=== PATIENT | female | born 1960 | race Caucasian/White ===

== ENCOUNTER 2019-02-20 17:48 | Inpatient (IN) | payer OTHER ==
[~2019-02-20] VITALS: Ht 157.5 cm; Wt 80.4 kg
[~2019-02-20 17:48] MED LIST: HYDR-3601 PO; LEVO150T87 PO; MYCO180T2 PO; PANT40TA3 PO; PRED5TAB PO; TACR5CAP PO; TRAM50TA2 PO
[2019-02-20 18:30] VITALS: BP 101/57; PULSE 78; RESP 17
[2019-02-20] MEDS ORDERED: CLON0.3T PO (19:58)
[2019-02-20] MEDS ORDERED: CLON0.2T5 PO (20:00)
[2019-02-20] MEDS ORDERED: ATOR10TA65 PO (20:02)
[2019-02-20 20:11] VITALS: BP 105/62; PULSE 74; RESP 18
[2019-02-20] MEDS ORDERED: ONDANSETRON 4 MG INJ IV PRN (21:00)
[2019-02-20] MEDS ORDERED: HYDROCODONE/APAP (5/325) TAB PO PRN ×2 (21:00)
[2019-02-20] MEDS ORDERED: traMADol 50 MG TAB PO PRN (21:00)
[2019-02-20] MEDS ORDERED: CEFTRIAXONE 1 GM/50 ML (PMX) 50 ML IVPB SCH (21:00)
[2019-02-20] MEDS ORDERED: NACL 0.9% 3 ML SYG IV SCH (21:00)
[2019-02-20] MEDS: SOD CHLORIDE 0.9% 1,000 ML IV SCH (22:02)
[2019-02-20] MEDS: MYCOPHENOLATE (SR) 180 MG TAB PO SCH (22:06)
[2019-02-20 22:34] VITALS: Ht 157.5 cm; Wt 80.4 kg
[2019-02-21] MEDS ORDERED: ZOLPIDEM 5 MG TAB PO ONE
[2019-02-21] MEDS: ACETAMINOPHEN 325 MG TAB PO PRN ×2 (01:55→23:36)
[2019-02-21 02:21] VITALS: BP 141/69; PULSE 80; RESP 18
[2019-02-21] MEDS: LEVOTHYROXINE 150 MCG TAB PO SCH (06:07)
[2019-02-21] MEDS: PANTOPRAZOLE (EC) 40 MG TAB PO SCH (06:07)
--- NOTE | 2019-02-21 06:40 | HP ---
Date/Time of Note Date/Time of Note DATE: 02/21/19 TIME: 06:36 Assessment/Plan VTE Prophylaxis Pharmacological prophylaxis: other Lines/Catheters IV Catheter Type (from [facility]): [place] Urinary Cath still in place: No Assessment/Plan Assessment/Plan 1. UTI with probable pyelonephritis -IV antibiotic -IV fluid -Follow-up culture results 2. Gram-negative bacilli bacteremia -Nurse just got a call from [facility] that patient blood culture was positive -IV antibiotic -Repeat blood culture 3. Status post kidney transplant -Continue immunotherapy -Check Prograf level in a.m. 4. History of lupus: See #3 5. Hypothyroidism, status post thyroidectomy -Continue Synthroid 6. Hypertension: Continue home med Result Diagram: 02/21/19 0551 02/21/19 0551 Results 24hrs Laboratory Tests Test 02/21/19 01:50 02/21/19 05:51 Urine Color STRAW Urine Clarity CLEAR Urine pH 7.0 Urine Specific [place] 1.004 Urine Ketones NEGATIVE Urine Nitrite NEGATIVE Urine Bilirubin NEGATIVE Urine Urobilinogen NEGATIVE Urine Leukocyte Esterase 2+ H Urine Microscopic RBC 0 Urine Microscopic WBC 63 H Urine Bacteria FEW A Urine Hemoglobin 1+ H Urine Glucose NEGATIVE Urine Total Protein NEGATIVE White Blood Count 12.5 #H Red Blood Count 3.69 L Hemoglobin 11.3 L Hematocrit 34.8 L Mean Corpuscular Volume 94.3 Mean Corpuscular Hemoglobin 30.6 Mean Corpuscular Hemoglobin Concent 32.5 Red Cell Distribution Width 13.0 Platelet Count 152 Mean Platelet Volume 9.3 # Immature Granulocytes % 0.600 H Neutrophils % 73.7 Lymphocytes % 16.4 Monocytes % 7.4 Eosinophils % 1.6 Basophils % 0.3 Nucleated Red Blood Cells % 0.0 Immature Granulocytes # 0.070 H Neutrophils # 9.2 H Lymphocytes # 2.1 Monocytes # 0.9 Eosinophils # 0.2 Basophils # 0.0 Nucleated Red Blood Cells # 0.0 Sodium Level 142 Potassium Level 5.0 Chloride Level 111 H Carbon Dioxide Level 27 Anion Gap 4 L Blood Urea Nitrogen 17 Creatinine 0.90 Est Glomerular Filtrat Rate mL/min > 60 Glucose Level 113 Calcium Level 9.5 Phosphorus Level 3.7 Magnesium Level 1.6 L Total Bilirubin 0.5 Direct Bilirubin 0.00 Indirect Bilirubin 0.5 Aspartate Amino Transf (AST/SGOT) 18 Alanine Aminotransferase (ALT/SGPT) 24 Alkaline Phosphatase 98 Total Protein 6.1 Albumin 3.3 Globulin 2.80 Albumin/Globulin Ratio 1.17 HPI/ROS Admit Date/Time Admit Date/Time February 20, 2019 at 18:44 Hx of Present Illness This is a 58-year-old female with a history of lupus, kidney failure status post cadaveric renal transplant, hypothyroidism status post thyroidectomy, hypertension. Patient initially presented to [facility] complaining of dysuria and urinary frequency. She was diagnosed with UTI with questionable pyelonephritis and was transferred to [facility] for insurance reason. We just got a call from home outside hospital saying that her blood culture comes back gram-negative bacilli. PMH/Family/Social Past Medical History Past Medical History Medical History: other (See HPI) Past Surgical History Past Surgical Hx: other (See HPI) Family History Significant Family History: no pertinent family hx Social History Alcohol Use: none Smoking Status: Never smoker Drug Use: none Exam Constitutional: alert, oriented, well developed Head: normocephalic, atraumatic Eyes: EOMI, PERRL Respiratory: clear to auscultation, normal air movement Cardiovascular: regular rate and rhythm, nl pulses Gastrointestinal: soft, non-tender Extremities: normal pulses Medications Current Medications Sodium Chloride 1,000 ml @ 75 mls/hr [id number] IV Last administered on 02/20/19at 22:02; Admin Dose 75 MLS/HR; Start 02/20/19 at 20:43 IV Flush (NS 3 ml) 3 ml PER PROTOCOL IV ; Start 02/20/19 at 21:00 Ondansetron HCl (Zofran Inj) 4 mg Q6H PRN IV NAUSEA/VOMITING; Start 02/20/19 at 21:00 Acetaminophen (Tylenol Tab) 650 mg Q6H PRN PO .PAIN 1-3 OR TEMP Last administered on 02/21/19at 01:55; Admin Dose 650 MG; Start 02/20/19 at 21:00 Acetaminophen/ Hydrocodone Bitart ([place] (5/325)) 1 tab Q6H PRN PO .MOD PAIN 4- 6; Start 02/20/19 at 21:00 Acetaminophen/ Hydrocodone Bitart ([place] (5/325)) 2 tab Q6H PRN PO .SEVERE PAIN 7-10; Start 02/20/19 at 21:00 Atorvastatin Calcium (Lipitor) 10 mg DAILY PO ; Start 02/21/19 at 09:00 Levothyroxine Sodium (Synthroid) 150 mcg BEFORE BREAKFAST PO Last administered on 02/21/19at 06:07; Admin Dose 150 MCG; Start 02/21/19 at 07:00 Mycophenolate Sodium (Myfortic) 540 mg BID PO Last administered on 02/20/19at 22:06; Admin Dose 540 MG; Start 02/20/19 at 22:00 Pantoprazole (Protonix Tab) 40 mg DAILY@0600 PO Last administered on 02/21/19at 06:07; Admin Dose 40 MG; Start 02/21/19 at 06:00 Prednisone (Prednisone) 5 mg DAILY PO ; Start 02/21/19 at 09:00 Tramadol HCl (Ultram) 50 mg Q6 PRN PO PAIN; Start 02/20/19 at 21:00 Miscellaneous Information 7 mg BID PO ; Start 02/20/19 at 21:00; Status UNV Ceftriaxone Sodium 50 ml @ 100 mls/hr Q24H IVPB Last administered on 02/20/19at 22:02; Admin Dose 100 MLS/HR; Start 02/20/19 at 21:00 Miscellaneous Information (*Order Clarification Bulletin) MEDICATION REQUIRES CLARIFICATI... Q8H XX ; Start 02/20/19 at 21:00 Coded Allergies: amoxicillin (Verified Allergy, Unknown, 07/12/16) Past Surgical History Past Surgical Hx: other Family History Significant Family History: no pertinent family hx Social History Smoking Status: Never smoker Exam/Review of Systems Vital Signs Vitals Vital Signs Date Temp Pulse Resp B/P (MAP) Pulse Ox O2 O2 Flow FiO2 Time Delivery Rate 02/21/19 98.0 80 18 141/69 96 02:21 (93) 02/20/19 Room Air 20:11 02/20/19 2.0 18:30 Intake and Output 02/20/19 02/20/19 02/21/19 1515:00 23:00 07:00 IntakeIntake Total 50 ml 350 ml BalanceBalance 50 ml 350 ml ALDAIR SORIANO MD February 21, 2019 06:40
[2019-02-21 08:00] VITALS: BP 139/73; PULSE 79; RESP 17
[2019-02-21] MEDS ORDERED: hydrALAzine 20 MG INJ IV PRN (09:30)
[2019-02-21] MEDS: SOD CHLORIDE 0.9% 1,000 ML IV SCH (09:45)
[2019-02-21] MEDS: ATORVASTATIN 10 MG TAB PO SCH (09:45)
[2019-02-21] MEDS: predniSONE 5 MG TAB PO SCH (09:46)
[2019-02-21] MEDS: MYCOPHENOLATE (SR) 180 MG TAB PO SCH ×2 (09:46→21:06)
[2019-02-21] MEDS ORDERED: MAGNESIUM SULFATE 2 GM/50 ML 50 ML IVPB ONE (10:30)
[2019-02-21] MEDS: TACROLIMUS 1 MG CAP PO SCH ×2 (11:07→21:05)
--- NOTE | 2019-02-21 13:31 | PN ---
Date/Time of Note Date/Time of Note DATE: 02/21/19 TIME: 13:31 Objective Vitals Vital Signs Date Temp Pulse Resp B/P (MAP) Pulse Ox O2 O2 Flow FiO2 Time Delivery Rate 02/21/19 98.2 79 17 139/73 99 Nasal 2.0 08:00 (95) Cannula Intake and Output 02/20/19 02/20/19 02/21/19 1515:00 23:00 07:00 IntakeIntake Total 725 ml 350 ml BalanceBalance 725 ml 350 ml Results Result Diagram: 02/21/19 0551 02/21/19 0551 Medications Medications Current Medications Sodium Chloride 1,000 ml @ 75 mls/hr [id number] IV Last administered on 02/21/19at 09:45; Admin Dose 75 MLS/HR; Start 02/20/19 at 20:43 IV Flush (NS 3 ml) 3 ml PER PROTOCOL IV ; Start 02/20/19 at 21:00 Ondansetron HCl (Zofran Inj) 4 mg Q6H PRN IV NAUSEA/VOMITING; Start 02/20/19 at 21:00 Acetaminophen (Tylenol Tab) 650 mg Q6H PRN PO .PAIN 1-3 OR TEMP Last administered on 02/21/19at 01:55; Admin Dose 650 MG; Start 02/20/19 at 21:00 Acetaminophen/ Hydrocodone Bitart ([place] (5/325)) 1 tab Q6H PRN PO .MOD PAIN 4- 6; Start 02/20/19 at 21:00 Acetaminophen/ Hydrocodone Bitart ([place] (5/325)) 2 tab Q6H PRN PO .SEVERE PAIN 7-10; Start 02/20/19 at 21:00 Atorvastatin Calcium (Lipitor) 10 mg DAILY PO Last administered on 02/21/19at 09:45; Admin Dose 10 MG; Start 02/21/19 at 09:00 Levothyroxine Sodium (Synthroid) 150 mcg BEFORE BREAKFAST PO Last administered on 02/21/19at 06:07; Admin Dose 150 MCG; Start 02/21/19 at 07:00 Mycophenolate Sodium (Myfortic) 540 mg BID PO Last administered on 02/21/19at 09:46; Admin Dose 540 MG; Start 02/20/19 at 22:00 Pantoprazole (Protonix Tab) 40 mg DAILY@0600 PO Last administered on 02/21/19at 06:07; Admin Dose 40 MG; Start 02/21/19 at 06:00 Prednisone (Prednisone) 5 mg DAILY PO Last administered on 02/21/19at 09:46; Admin Dose 5 MG; Start 02/21/19 at 09:00 Tramadol HCl (Ultram) 50 mg Q6 PRN PO PAIN; Start 02/20/19 at 21:00 Tacrolimus (Prograf) 7 mg BID PO Last administered on 02/21/19at 11:07; Admin Dose 7 MG; Start 02/21/19 at 11:00 Ceftriaxone Sodium 50 ml @ 100 mls/hr Q24H IVPB Last administered on 02/20/19at 22:02; Admin Dose 100 MLS/HR; Start 02/20/19 at 21:00 Miscellaneous Information (*Order Clarification Bulletin) MEDICATION REQUIRES CLARIFICATI... Q8H XX ; Start 02/20/19 at 21:00 Hydralazine HCl (Apresoline) 10 mg Q4H PRN IV sbp >160; Start 02/21/19 at 09:30 VTE Prophylaxis Risk score (from Ns)>0 risk: 4 SCD applied (from [facility]): Yes Lines/Catheters IV Catheter Type: Flores in Place: No Assessment/Plan Hospital Course Subjective Patient's left abdominal pain is significantly better Objective Physical exam General: Patient is laying in bed and answers questions appropriately Mentation: Patient is alert and oriented 4, Head: Normocephalic atraumatic Eyes: EOMI, pupils reactive to light Neck: Supple, nontender, midline Respiratory: Clear to auscultation bilaterally Cardiovascular: regular rate, no obvious murmurs Gastrointestinal: Mild left lower quadrant tenderness to palpation, bowel sounds heard. Neurological: Moves all extremities spontaneously Skin: No new skin lesions Assessment and plan Urinary tract infection -CT not showing any signs of pyelonephritis however with lower abdominal pain at surgical site may be early pyelonephritis -Continue IV antibiotic -Patient due to immune compromise status will need to wait until culture results before discharge on appropriate oral antibiotic -Blood cultures also pending Gram-negative bacteremia -Nurse got a call from [facility] the patient's blood culture was positive -Repeating blood cultures -Continue IV antibiotic History of kidney transplant -CT negative for acute issues -Monitor closely History of lupus -Continue home meds Hypothyroidism -Continue home med Hypertension -Continue home meds Patchy density and liver -Liver biopsy done in 2016 -Findings similar to examination 2016, follow-up outpatient with her primary care provider Tiny nonobstructing renal calculi -Continue IV fluid Disposition -Continue IV antibiotic, consult infectious disease, await culture results before discharge ALIZA CARRENO February 21, 2019 13:31
[2019-02-21 14:00] VITALS: BP 136/69; PULSE 80; RESP 17
--- NOTE | 2019-02-21 18:49 | CONS ---
DATE OF ADMISSION: 02/20/2019 DATE OF CONSULTATION: 02/21/2019 TYPE OF CONSULTATION: Infectious disease. REQUESTING PHYSICIAN: Aliza Evans MD Thank you, Dr. Evans, for this consultation. HISTORY OF PRESENT ILLNESS: This is an obese, well-developed, 58-year-old woman who speaks and understands [place] well. The patient with a history of lupus, chronic kidney disease status pos t cadaveric renal transplant in 2011, on immunosuppressive therapy, hypothyroidism, status post thyro idectomy, hypertension. She was admitted to [facility] with sudden onset of fevers, chills and left lower quadrant abdominal pain as well as dysuria per report for blood culture and urine culture grew gram-negative rods. She was subsequently transferred to [facility] on IV cefepime. VITAL SIGNS: Temperature 98.1, pulse 80, respirations 17, blood pressure 136/69, saturation 100 on n kyara cannula. LABORATORY DATA: WBC 12.5, H and H 11.3 and 34.8, platelets 152, no shift, no bands. BUN 17, creati nine 0.90. Normal bilirubin and LFT. MICROBIOLOGY: Urinalysis is still positive for leukocyte esterase and white blood cell count, few ba cteria, negative for nitrite. DIAGNOSTICS: CT of the abdomen and pelvis without contrast revealed heterogenous patchy density in r ight lobe of the liver. Findings are similar to prior examination in 2016. Severe end-stage atrophy of the bilateral [place] kidneys with tiny nonobstructive renal calculi. No evidence of obstructive uropathy. Left pelvic transplant kidney without evidence of obstructive uropathy or urolithiasis, no evidence of pyelonephritis, mild colonic diverticulosis without evidence of diverticulitis. REVIEW OF SYSTEMS: The patient still has mild left lower quadrant abdominal pain. Dysuria is improv ing. She denies nausea, vomiting, diarrhea. She has some mild headache. ALLERGIES: AMOXICILLIN THAT CAUSES SWELLING OF THE FACE, RASH AND SWELLING ON THE TONGUE. MEDICATIONS: The patient is on: 1. Cefepime 1 gram q.12 hours. 2. Prograf 7 mg twice a day. 3. Hydralazine 10 mg p.r.n. q.4 hours. 4. Lipitor 10 mg daily. 5. Prednisone 5 mg daily. 6. Synthroid 150 mcg before breakfast. 7. Protonix 40 mg daily. 8. Myfortic 540 mg twice a day. SOCIAL HISTORY: The patient lives at home with her family. Denies smoking, alcohol or illicits. De nies recent travel, sick contacts. PHYSICAL EXAMINATION: GENERAL: This is an obese, well-developed, very pleasant, middle-aged woman who is alert, i n no distress. HEENT: Head is atraumatic, normocephalic. Sclerae are anicteric. Buccal mucosa is pale. Oropharyn x is clear. No oral lesions. NECK: Supple. No palpable cervical nodes. CHEST: Rise symmetrical. Breath sounds are clear bilaterally. HEART: S1, S2. ABDOMEN: Soft. Bowel sounds are present. The patient has some mild tenderness on palpation of left lower quadrant. No evidence of distended bladder. EXTREMITIES: Without cyanosis. DIAGNOSTIC IMPRESSION: A 58-year-old woman admitted to [facility] with sepsis secondary to uri nary tract infection per report growing gram-negative rods in her blood. She is clinically and sympt om pathologically improving. Cultures repeated here are pending. We will continue her on current an tibiotics. We will try to obtain final cultures from [facility]. Further rec ommendations per patient's clinical course. I discussed with Dr. Geronimo, covering for Dr. Rodriguez. Dictated By: MANSOOR MOSQUERA FORESTRY CONSULTANT for KAYLEIGH MILLAN/NTS Conf#: [id number] DID#: [id number] CC: ALIZA EVANS MD;*EndCC*
[2019-02-21 20:00] VITALS: BP 171/86; PULSE 91; RESP 18
[2019-02-21] MEDS: CEFEPIME 1GM/50 ML (PMX) 50 ML IVPB SCH (21:12)
[2019-02-22 01:00] VITALS: BP 133/68; PULSE 80; RESP 18
[2019-02-22] MEDS: PANTOPRAZOLE (EC) 40 MG TAB PO SCH (06:12)
[2019-02-22] MEDS: LEVOTHYROXINE 150 MCG TAB PO SCH (06:12)
[2019-02-22] MEDS: SOD CHLORIDE 0.9% 1,000 ML IV SCH ×3 (06:12→20:45)
[2019-02-22 08:10] VITALS: BP 138/67; PULSE 68; RESP 18
[2019-02-22] MEDS: TACROLIMUS 1 MG CAP PO SCH ×2 (10:04→21:32)
[2019-02-22] MEDS: CEFEPIME 1GM/50 ML (PMX) 50 ML IVPB SCH ×2 (10:04→20:45)
[2019-02-22] MEDS: MYCOPHENOLATE (SR) 180 MG TAB PO SCH ×2 (10:04→21:31)
[2019-02-22] MEDS: predniSONE 5 MG TAB PO SCH (10:05)
[2019-02-22] MEDS: ATORVASTATIN 10 MG TAB PO SCH (10:05)
[2019-02-22] MEDS ORDERED: MAGNESIUM SULFATE 2 GM/50 ML 50 ML IVPB ONE (10:30)
--- NOTE | 2019-02-22 12:13 | PN ---
Date/Time of Note Date/Time of Note DATE: 02/22/19 TIME: 12:12 Objective Vitals Vital Signs Date Temp Pulse Resp B/P (MAP) Pulse Ox O2 O2 Flow FiO2 Time Delivery Rate 02/22/19 98.2 68 18 138/67 98 08:10 (90) 02/22/19 Nasal 2.0 01:00 Cannula Intake and Output 02/21/19 02/21/19 02/22/19 1515:00 23:00 07:00 IntakeIntake Total 1015 ml 790 ml 1000 ml BalanceBalance 1015 ml 790 ml 1000 ml Results Result Diagram: 02/22/1963202/22/19632 Medications Medications Current Medications Sodium Chloride 1,000 ml @ 75 mls/hr [id number] IV Last administered on 02/22/19at 06:12; Admin Dose 75 MLS/HR; Start 02/20/19 at 20:43 IV Flush (NS 3 ml) 3 ml PER PROTOCOL IV ; Start 02/20/19 at 21:00 Ondansetron HCl (Zofran Inj) 4 mg Q6H PRN IV NAUSEA/VOMITING; Start 02/20/19 at 21:00 Acetaminophen (Tylenol Tab) 650 mg Q6H PRN PO .PAIN 1-3 OR TEMP Last administered on 02/21/19at 23:36; Admin Dose 650 MG; Start 02/20/19 at 21:00 Acetaminophen/ Hydrocodone Bitart ([place] (5/325)) 1 tab Q6H PRN PO .MOD PAIN 4-6; Start 02/20/19 at 21:00 Acetaminophen/ Hydrocodone Bitart ([place] (5/325)) 2 tab Q6H PRN PO .SEVERE PAIN 7-10; Start 02/20/19 at 21:00 Atorvastatin Calcium (Lipitor) 10 mg DAILY PO Last administered on 02/22/19at 10:05; Admin Dose 10 MG; Start 02/21/19 at 09:00 Levothyroxine Sodium (Synthroid) 150 mcg BEFORE BREAKFAST PO Last administered on 02/22/19at 06:12; Admin Dose 150 MCG; Start 02/21/19 at 07:00 Mycophenolate Sodium (Myfortic) 540 mg BID PO Last administered on 02/22/19at 10:04; Admin Dose 540 MG; Start 02/20/19 at 22:00 Pantoprazole (Protonix Tab) 40 mg DAILY@0600 PO Last administered on 02/22/19at 06:12; Admin Dose 40 MG; Start 02/21/19 at 06:00 Prednisone (Prednisone) 5 mg DAILY PO Last administered on 02/22/19at 10:05; Admin Dose 5 MG; Start 02/21/19 at 09:00 Tramadol HCl (Ultram) 50 mg Q6 PRN PO PAIN; Start 02/20/19 at 21:00 Tacrolimus (Prograf) 7 mg BID PO Last administered on 02/22/19at 10:04; Admin Dose 7 MG; Start 02/21/19 at 11:00 Miscellaneous Information (*Order Clarification Bulletin) MEDICATION REQUIRES CLARIFICATI... Q8H XX ; Start 02/20/19 at 21:00 Hydralazine HCl (Apresoline) 10 mg Q4H PRN IV sbp >160; Start 02/21/19 at 09:30 Cefepime HCl 50 ml @ 100 mls/hr Q12 IVPB Last administered on 02/22/19at 10:04; Admin Dose 100 MLS/HR; Start 02/21/19 at 21:00 Clonidine (Catapres) 0.1 mg Q6H PRN PO sbp >160; Start 02/22/19 at 10:00 Magnesium Sulfate 50 ml @ 25 mls/hr ONCE ONCE IVPB Last administered on 02/22/19at 10:56; Admin Dose 25 MLS/HR; Start 02/22/19 at 10:30; Stop 02/22/19 at 12:29 VTE Prophylaxis Risk score (from Nsg)>0 risk: 4 SCD applied (from Nsg): Yes Lines/Catheters IV Catheter Type: Flores in Place: No Assessment/Plan Hospital Course Subjective Patient's left abdominal pain cont to improve Objective Physical exam General: Patient is laying in bed and answers questions appropriately Mentation: Patient is alert and oriented 4, Head: Normocephalic atraumatic Eyes: EOMI, pupils reactive to light Neck: Supple, nontender, midline Respiratory: Clear to auscultation bilaterally Cardiovascular: regular rate, no obvious murmurs Gastrointestinal: Mild left lower quadrant tenderness to palpation, bowel sounds heard. Neurological: Moves all extremities spontaneously Skin: No new skin lesions Assessment and plan Urinary tract infection -CT not showing any signs of pyelonephritis however with lower abdominal pain at surgical site may be early pyelonephritis -Continue IV antibiotic -Patient due to immune compromise status will need to wait until culture results before discharge on appropriate oral antibiotic -Blood cultures also pending Gram-negative bacteremia -Nurse got a call from [facility] the patient's blood culture was positive -Repeating blood cultures -Continue IV antibiotic History of kidney transplant -CT negative for acute issues -Monitor closely History of lupus -Continue home meds Hypothyroidism -Continue home med Hypertension -Continue home meds Patchy density and liver -Liver biopsy done in 2016 -Findings similar to examination 2016, follow-up outpatient with her primary care provider Tiny nonobstructing renal calculi -Continue IV fluid Disposition -Continue IV antibiotic, consult infectious disease, await culture results before discharge ALIZA CARRENO February 22, 2019 12:13
[2019-02-22] MEDS: ACETAMINOPHEN 325 MG TAB PO PRN (14:18)
[2019-02-22 14:29] VITALS: BP 179/90; PULSE 76; RESP 18
--- NOTE | 2019-02-22 15:07 | CONS ---
Assessment/Plan Assessment/Plan Hospital Course (Demo Recall) Patient is alert feels better still with intermittent left sided abdominal pain, no dysuria no hematuria, no fevers WBC 9.4 platelets 172, no shift no bands BUN 16 creatinine 0.70 Microbiology: Blood and urine cultures are negative Allergies: Amoxicillin Antimicrobials: Cefepime PHYSICAL EXAMINATION: GENERAL: This is an obese, well-developed, very pleasant, middle-aged woman who is alert, in no distress. HEENT: Head is atraumatic, normocephalic. Sclerae are anicteric. Buccal mucosa is pale. Oropharynx is clear. No oral lesions. NECK: Supple. No palpable cervical nodes. CHEST: Rise symmetrical. Breath sounds are clear bilaterally. HEART: S1, S2. ABDOMEN: Soft. Bowel sounds are present. The patient has some mild tenderness on palpation of left lower quadrant. No evidence of distended bladder. EXTREMITIES: Without cyanosis. Assessment: 1. Acute pyelonephritis 2. Gram-negative ashok bacteremia 3. History of kidney transplant, on immunosuppressive therapy 4. Lupus Plan: A 58-year-old woman was transferred from [facility] secondary to sepsis/ urinary tract infection per report growing gram-negative rods in her blood. She is improving. Continue antibiotics and await for blood cultures from [facility] Consultation Date/Type/Reason Admit Date/Time February 20, 2019 at 18:44 Initial Consult Date Type of Consult id Date/Time of Note DATE: 02/22/19 TIME: 15:07 Exam/Review of Systems Exam Vitals Vital Signs Date Temp Pulse Resp B/P (MAP) Pulse Ox O2 O2 Flow FiO2 Time Delivery Rate 02/22/19 98.3 76 18 179/90 99 14:29 (119) 02/22/19 Nasal 2.0 01:00 Cannula Intake and Output 02/21/19 02/21/19 02/22/19 1414:59 22:59 06:59 IntakeIntake Total 1015 ml 790 ml 1000 ml BalanceBalance 1015 ml 790 ml 1000 ml Results Result Diagram: 02/22/19 0633 02/22/19 0633 Results 24hrs Laboratory Tests Test 02/22/19 06:33 White Blood Count 9.4 # Red Blood Count 3.98 L Hemoglobin 12.0 Hematocrit 37.1 Mean Corpuscular Volume 93.2 Mean Corpuscular Hemoglobin 30.2 Mean Corpuscular Hemoglobin Concent 32.3 Red Cell Distribution Width 12.8 Platelet Count 172 Mean Platelet Volume 9.6 Immature Granulocytes % 0.400 Neutrophils % 70.0 Lymphocytes % 18.7 Monocytes % 8.8 Eosinophils % 1.8 Basophils % 0.3 Nucleated Red Blood Cells % 0.0 Immature Granulocytes # 0.040 H Neutrophils # 6.6 Lymphocytes # 1.8 Monocytes # 0.8 Eosinophils # 0.2 Basophils # 0.0 Nucleated Red Blood Cells # 0.0 Sodium Level 143 Potassium Level 3.7 Chloride Level 113 H Carbon Dioxide Level 23 Anion Gap 7 Blood Urea Nitrogen 16 Creatinine 0.70 Est Glomerular Filtrat Rate mL/min > 60 Glucose Level 126 Calcium Level 10.0 Phosphorus Level 3.1 Magnesium Level 1.6 L Medications Medication Current Medications Sodium Chloride 1,000 ml @ 75 mls/hr [id number] IV Last administered on 02/22/19 06:12; Admin Dose 75 MLS/HR; Start 02/20/19 at 20:43 IV Flush (NS 3 ml) 3 ml PER PROTOCOL IV ; Start 02/20/19 at 21:00 Ondansetron HCl (Zofran Inj) 4 mg Q6H PRN IV NAUSEA/VOMITING; Start 02/20/19 at 21:00 Acetaminophen (Tylenol Tab) 650 mg Q6H PRN PO .PAIN 1-3 OR TEMP Last administered on 02/22/19at 14:18; Admin Dose 650 MG; Start 02/20/19 at 21:00 Acetaminophen/ Hydrocodone Bitart ([place] (5/325)) 1 tab Q6H PRN PO .MOD PAIN 4- 6; Start 02/20/19 at 21:00 Acetaminophen/ Hydrocodone Bitart ([place] (5/325)) 2 tab Q6H PRN PO .SEVERE PAIN 7-10; Start 02/20/19 at 21:00 Atorvastatin Calcium (Lipitor) 10 mg DAILY PO Last administered on 02/22/19at 10:05; Admin Dose 10 MG; Start 02/21/19 at 09:00 Levothyroxine Sodium (Synthroid) 150 mcg BEFORE BREAKFAST PO Last administered on 02/22/19at 06:12; Admin Dose 150 MCG; Start 02/21/19 at 07:00 Mycophenolate Sodium (Myfortic) 540 mg BID PO Last administered on 02/22/19 10:04; Admin Dose 540 MG; Start 02/20/19 at 22:00 Pantoprazole (Protonix Tab) 40 mg DAILY@0600 PO Last administered on 02/22/19 06:12; Admin Dose 40 MG; Start 02/21/19 at 06:00 Prednisone (Prednisone) 5 mg DAILY PO Last administered on 02/22/19 10:05; Admin Dose 5 MG; Start 02/21/19 at 09:00 Tramadol HCl (Ultram) 50 mg Q6 PRN PO PAIN; Start 02/20/19 at 21:00 Tacrolimus (Prograf) 7 mg BID PO Last administered on 02/22/19 10:04; Admin Dose 7 MG; Start 02/21/19 at 11:00 Miscellaneous Information (*Order Clarification Bulletin) MEDICATION REQUIRES CLARIFICATI... Q8H XX ; Start 02/20/19 at 21:00 Hydralazine HCl (Apresoline) 10 mg Q4H PRN IV sbp >160; Start 02/21/19 at 09:30 Cefepime HCl 50 ml @ 100 mls/hr Q12 IVPB Last administered on 02/22/19 10:04; Admin Dose 100 MLS/HR; Start 02/21/19 at 21:00 Clonidine (Catapres) 0.1 mg Q6H PRN PO sbp >160 Last administered on 02/22/19 14:18; Admin Dose 0.1 MG; Start 02/22/19 at 10:00 Clonidine (Catapres) 0.2 mg QHS PO ; Start 02/22/19 at 21:00 Clonidine (Catapres) 0.3 mg QAM PO ; Start 02/23/19 at 09:00 MANSOOR MOSQUERA NP February 22, 2019 15:07
[2019-02-22 15:30] VITALS: BP 153/84; PULSE 77
[2019-02-22 20:00] VITALS: BP 169/86; PULSE 84; RESP 18
[2019-02-23] VITALS (7 sets, daily range): BP systolic 113–178; BP diastolic 67–94; PULSE 67–98; RESP 18
[2019-02-23] MEDS: ACETAMINOPHEN 325 MG TAB PO PRN ×2 (02:03→10:17)
[2019-02-23] MEDS: PANTOPRAZOLE (EC) 40 MG TAB PO SCH (06:22)
[2019-02-23] MEDS: LEVOTHYROXINE 150 MCG TAB PO SCH (06:22)
[2019-02-23] MEDS: predniSONE 5 MG TAB PO SCH (10:08)
[2019-02-23] MEDS: CEFEPIME 1GM/50 ML (PMX) 50 ML IVPB SCH ×2 (10:08→20:21)
[2019-02-23] MEDS: MYCOPHENOLATE (SR) 180 MG TAB PO SCH ×2 (10:08→20:22)
[2019-02-23] MEDS: ATORVASTATIN 10 MG TAB PO SCH (10:09)
[2019-02-23] MEDS: TACROLIMUS 1 MG CAP PO SCH ×2 (11:26→20:22)
--- NOTE | 2019-02-23 13:04 | PN ---
Date/Time of Note Date/Time of Note DATE: 02/23/19 TIME: 13:01 Assessment/Plan VTE Prophylaxis Risk score (from Ns)>0 risk: 3 SCD applied (from Ns): Yes Pharmacological prophylaxis: NA/contraindicated Pharm contraindication: low risk/ambulating Lines/Catheters IV [facility]ter Type (from [facility]): Peripheral IV Urinary Cath still in place: No Assessment/Plan Hospital Course SUBJECTIVE: Denies any complaints. OBJECTIVE: Physical Exam General: Obese, 58 year-old female lying in bed in no apparent distress. HEENT: Normocephalic, atraumatic. Eyes: Anicteric sclerae, conjunctivae clear. ENT: Nasal septum midline, oral mucosa moist. Neck supple, no JVD noticed. Respiratory: Bilaterally clear breath sounds. No use of accessory muscles of respiration. No adventitious breath sounds. Cardiovascular: S1, S2 heard. Regular rate and rhythm. Abdomen: Soft, nontender, and nondistended. Bowel sounds positive in all 4 quadrants. Genitourinary: Deferred. Extremities: No cyanosis, no clubbing, no edema. Peripheral pulses palpable. Neurologic: Cranial nerves II through XII grossly intact. The patient is awake, alert, and oriented. Skin: Normal skin turgor. No skin rashes. Labs & Vitals per chart ASSESSMENT & PLAN 58-year-old female with comorbidities including lupus, hypothyroidism, hypertension, status post cadaveric renal transplant who was transferred from the facility for further management of sepsis because of insurance reasons. 1. Sepsis with underlying urinary tract infection. -Continue antimicrobials. -Await final cultures from transferring facility. 2. Gram-negative bacteremia (from transferring facility). -Continue antimicrobials as per ID. Await final cultures. 3. Status post transplant. -Continue immunotherapy. -Prograf level low. -Obtain nephrology consult. 4. Hypothyroidism. -Continue Synthroid. 5. Lupus. -No evidence of any flare. 6. Hypertension. -Continue antihypertensives. 7. Dyslipidemia. -Continue statins. 8. Fluids, electrolytes, and nutrition. -Renal diet. 9. DVT prophylaxis. -Bilateral SCDs. 10. Plan. -Continue antimicrobials as per ID. -Await final cultures from the transferring facility. The patient was seen in collaboration with Dr. Garcia. Result Diagram: 02/23/19 0532 02/23/19 0532 Results 24hrs Laboratory Tests Test 02/23/19 05:32 White Blood Count 9.6 Red Blood Count 4.03 L Hemoglobin 12.1 Hematocrit 36.8 L Mean Corpuscular Volume 91.3 Mean Corpuscular Hemoglobin 30.0 Mean Corpuscular Hemoglobin Concent 32.9 Red Cell Distribution Width 12.4 Platelet Count 201 Mean Platelet Volume 9.8 Immature Granulocytes % 0.500 H Neutrophils % 66.8 Lymphocytes % 23.4 Monocytes % 7.8 Eosinophils % 1.3 Basophils % 0.2 Nucleated Red Blood Cells % 0.0 Immature Granulocytes # 0.050 H Neutrophils # 6.4 Lymphocytes # 2.2 Monocytes # 0.8 Eosinophils # 0.1 Basophils # 0.0 Nucleated Red Blood Cells # 0.0 Sodium Level 142 Potassium Level 3.3 L Chloride Level 113 H Carbon Dioxide Level 22 Anion Gap 7 Blood Urea Nitrogen 15 Creatinine 0.62 Est Glomerular Filtrat Rate mL/min > 60 Glucose Level 119 Calcium Level 9.9 Phosphorus Level 2.9 Magnesium Level 1.3 L Exam/Review of Systems Exam Vitals Vital Signs Date Temp Pulse Resp B/P (MAP) Pulse Ox O2 O2 Flow FiO2 Time Delivery Rate 02/23/19 98.8 87 18 140/77 96 Room Air 08:00 (98) 02/22/19 2.0 01:00 Intake and Output 02/22/19 02/22/19 02/23/19 1515:00 23:00 07:00 IntakeIntake Total 880 ml 590 ml BalanceBalance 880 ml 590 ml Results Results 24hrs Laboratory Tests Test 02/23/19 05:32 White Blood Count 9.6 Red Blood Count 4.03 L Hemoglobin 12.1 Hematocrit 36.8 L Mean Corpuscular Volume 91.3 Mean Corpuscular Hemoglobin 30.0 Mean Corpuscular Hemoglobin Concent 32.9 Red Cell Distribution Width 12.4 Platelet Count 201 Mean Platelet Volume 9.8 Immature Granulocytes % 0.500 H Neutrophils % 66.8 Lymphocytes % 23.4 Monocytes % 7.8 Eosinophils % 1.3 Basophils % 0.2 Nucleated Red Blood Cells % 0.0 Immature Granulocytes # 0.050 H Neutrophils # 6.4 Lymphocytes # 2.2 Monocytes # 0.8 Eosinophils # 0.1 Basophils # 0.0 Nucleated Red Blood Cells # 0.0 Sodium Level 142 Potassium Level 3.3 L Chloride Level 113 H Carbon Dioxide Level 22 Anion Gap 7 Blood Urea Nitrogen 15 Creatinine 0.62 Est Glomerular Filtrat Rate mL/min > 60 Glucose Level 119 Calcium Level 9.9 Phosphorus Level 2.9 Magnesium Level 1.3 L Medications Medication Current Medications Sodium Chloride 1,000 ml @ 75 mls/hr [id number] IV Last administered on 02/22/19 20:45; Admin Dose 75 MLS/HR; Start 02/20/19 at 20:43 IV Flush (NS 3 ml) 3 ml PER PROTOCOL IV ; Start 02/20/19 at 21:00 Ondansetron HCl (Zofran Inj) 4 mg Q6H PRN IV NAUSEA/VOMITING; Start 02/20/19 at 21:00 Acetaminophen (Tylenol Tab) 650 mg Q6H PRN PO .PAIN 1-3 OR TEMP Last administered on 02/23/19 10:17; Admin Dose 650 MG; Start 02/20/19 at 21:00 Acetaminophen/ Hydrocodone Bitart ([place] (5/325)) 1 tab Q6H PRN PO .MOD PAIN 4- 6; Start 02/20/19 at 21:00 Acetaminophen/ Hydrocodone Bitart ([place] (5/325)) 2 tab Q6H PRN PO .SEVERE PAIN 7-10; Start 02/20/19 at 21:00 Atorvastatin Calcium (Lipitor) 10 mg DAILY PO Last administered on 02/23/19 10:09; Admin Dose 10 MG; Start 02/21/19 at 09:00 Levothyroxine Sodium (Synthroid) 150 mcg BEFORE BREAKFAST PO Last administered on 02/23/19 06:22; Admin Dose 150 MCG; Start 02/21/19 at 07:00 Mycophenolate Sodium (Myfortic) 540 mg BID PO Last administered on 02/23/19 10:08; Admin Dose 540 MG; Start 02/20/19 at 22:00 Pantoprazole (Protonix Tab) 40 mg DAILY@0600 PO Last administered on 02/23/19 06:22; Admin Dose 40 MG; Start 02/21/19 at 06:00 Prednisone (Prednisone) 5 mg DAILY PO Last administered on 02/23/19 10:08; Admin Dose 5 MG; Start 02/21/19 at 09:00 Tramadol HCl (Ultram) 50 mg Q6 PRN PO PAIN Last administered on 02/23/19 05:38; Admin Dose 50 MG; Start 02/20/19 at 21:00 Tacrolimus (Prograf) 7 mg BID PO Last administered on 02/23/19 11:26; Admin Dose 7 MG; Start 02/21/19 at 11:00 Miscellaneous Information (*Order Clarification Bulletin) MEDICATION REQUIRES CLARIFICATI... Q8H XX ; Start 02/20/19 at 21:00 Hydralazine HCl (Apresoline) 10 mg Q4H PRN IV sbp >160 Last administered on 02/23/19 02:08; Admin Dose 10 MG; Start 02/21/19 at 09:30 Cefepime HCl 50 ml @ 100 mls/hr Q12 IVPB Last administered on 02/23/19 10:08; Admin Dose 100 MLS/HR; Start 02/21/19 at 21:00 Clonidine (Catapres) 0.1 mg Q6H PRN PO sbp >160 Last administered on 02/22/19 14:18; Admin Dose 0.1 MG; Start 02/22/19 at 10:00 Clonidine (Catapres) 0.2 mg QHS PO Last administered on 02/22/19 21:30; Admin Dose 0.2 MG; Start 02/22/19 at 21:00 Clonidine (Catapres) 0.3 mg QAM PO Last administered on 02/23/19 10:09; Admin Dose 0.3 MG; Start 02/23/19 at 09:00 SEVERIANO DAVE NP February 23, 2019 13:04
[2019-02-23] MEDS ORDERED: POTASSIUM CHLORIDE (SR) 20 MEQ TAB PO STA (13:21)
--- NOTE | 2019-02-23 14:07 | CONS ---
Assessment/Plan Assessment/Plan Hospital Course (Demo Recall) ID PROGRESS NOTE CURRENT ABX: DAY #4+ => Cefepime #3 02/23/19 0532 02/23/19 0532 24H INTERVAL SUMMARY * Patient w/GNR bacteremia and pyelonephritis (from transferring facility = [facility]). * A/A/O, no fevers, VSS, NAD -- feeling much better yet still w/generalized weakness IMAGING * 02/21/19 CT A-P: IMPRESSION: * 1. Heterogeneous patchy density noted in the right lobe of the liver. Findings are similar to prior examinations in 2016 and likely represents patchy fatty infiltration or other benign infiltration or cirrhotic change of the liver parenchyma.. Prior liver biopsy was performed in 2016. Recommend correlation with prior biopsy results. * 2. Severe end-stage atrophy of the bilateral [place] kidneys with tiny nonobstructing renal calculi. No evidence of obstructive uropathy. * 3. Left pelvic transplant kidney without evidence of obstructive uropathy or urolithiasis. There is no CT evidence of pyelonephritis. * 4. Mild colonic diverticulosis without evidence of diverticulitis. MICRO/OTHER * 02/21/19 BCX (-) x3 * 02/21/19 Urine Cx (-) PHYSICAL EXAMINATION: GENERAL: VSS, NAD, HEENT: AT, NC, NECK: WNL CHEST: Equal chest rise bilaterally without dyspnea on observation ABD: Soft, ND EXTREMITIES: Warm, dry SKIN: No rash, no diaphoresis ID ASSESSMENT 58 yo M admit with: 1. Sepsis w/ Gram-negative ashok bacteremia due to acute recurrent pyelonephritis * 02/20/19 Micro from [facility] pending * NOTE: s/p admission JUL 2018 for Pyelonephritis 2. Ureter disorder per [facility] H&P notes - NOS 3. History of kidney transplant, on immunosuppressive therapy 4. Lupus 5. Hx of Thyroid disorder (HCC?) (?)MRSA Nares ABX ALLERGIES: AMOXICILLIN INVASIVES: PIV CURRENT ABX: DAY # #4+ => Cefepime #3 ID RECOMMENDATIONS/PLAN: 1. Pending MICRO data from [facility] -- I looked on chart it was not present 2. Anticipate Cefepime IV x 14 days -- may DC home to complete 14 days course when cleared by primary . Consultation Date/Type/Reason Admit Date/Time February 20, 2019 at 18:44 Initial Consult Date Date/Time of Note DATE: 02/23/19 TIME: 14:07 Exam/Review of Systems Exam Vitals Vital Signs Date Temp Pulse Resp B/P (MAP) Pulse Ox O2 O2 Flow FiO2 Time Delivery Rate 02/23/19 98.8 87 18 140/77 96 Room Air 08:00 (98) 02/22/19 2.0 01:00 Intake and Output 02/22/19 02/22/19 02/23/19 1515:00 23:00 07:00 IntakeIntake Total 880 ml 590 ml BalanceBalance 880 ml 590 ml Results Result Diagram: 02/23/19 0532 02/23/19 0532 Results 24hrs Laboratory Tests Test 02/23/19 05:32 White Blood Count 9.6 Red Blood Count 4.03 L Hemoglobin 12.1 Hematocrit 36.8 L Mean Corpuscular Volume 91.3 Mean Corpuscular Hemoglobin 30.0 Mean Corpuscular Hemoglobin Concent 32.9 Red Cell Distribution Width 12.4 Platelet Count 201 Mean Platelet Volume 9.8 Immature Granulocytes % 0.500 H Neutrophils % 66.8 Lymphocytes % 23.4 Monocytes % 7.8 Eosinophils % 1.3 Basophils % 0.2 Nucleated Red Blood Cells % 0.0 Immature Granulocytes # 0.050 H Neutrophils # 6.4 Lymphocytes # 2.2 Monocytes # 0.8 Eosinophils # 0.1 Basophils # 0.0 Nucleated Red Blood Cells # 0.0 Sodium Level 142 Potassium Level 3.3 L Chloride Level 113 H Carbon Dioxide Level 22 Anion Gap 7 Blood Urea Nitrogen 15 Creatinine 0.62 Est Glomerular Filtrat Rate mL/min > 60 Glucose Level 119 Calcium Level 9.9 Phosphorus Level 2.9 Magnesium Level 1.3 L Medications Medication Current Medications IV Flush (NS 3 ml) 3 ml PER PROTOCOL IV ; Start 02/20/19 at 21:00 Ondansetron HCl (Zofran Inj) 4 mg Q6H PRN IV NAUSEA/VOMITING; Start 02/20/19 at 21:00 Acetaminophen (Tylenol Tab) 650 mg Q6H PRN PO .PAIN 1-3 OR TEMP Last administered on 02/23/19at 10:17; Admin Dose 650 MG; Start 02/20/19 at 21:00 Acetaminophen/ Hydrocodone Bitart ([place] (5/325)) 1 tab Q6H PRN PO .MOD PAIN 4- 6; Start 02/20/19 at 21:00 Acetaminophen/ Hydrocodone Bitart ([place] (5/325)) 2 tab Q6H PRN PO .SEVERE PAIN 7-10; Start 02/20/19 at 21:00 Atorvastatin Calcium (Lipitor) 10 mg DAILY PO Last administered on 02/23/19 10:09; Admin Dose 10 MG; Start 02/21/19 at 09:00 Levothyroxine Sodium (Synthroid) 150 mcg BEFORE BREAKFAST PO Last administered on 02/23/19 06:22; Admin Dose 150 MCG; Start 02/21/19 at 07:00 Mycophenolate Sodium (Myfortic) 540 mg BID PO Last administered on 02/23/19 10 :08; Admin Dose 540 MG; Start 02/20/19 at 22:00 Pantoprazole (Protonix Tab) 40 mg DAILY@0600 PO Last administered on 02/23/19 06:22; Admin Dose 40 MG; Start 02/21/19 at 06:00 Prednisone (Prednisone) 5 mg DAILY PO Last administered on 02/23/19 10:08; Admin Dose 5 MG; Start 02/21/19 at 09:00 Tramadol HCl (Ultram) 50 mg Q6 PRN PO PAIN Last administered on 02/23/19 05:38; Admin Dose 50 MG; Start 02/20/19 at 21:00 Tacrolimus (Prograf) 7 mg BID PO Last administered on 02/23/19 11:26; Admin Dose 7 MG; Start 02/21/19 at 11:00 Miscellaneous Information (*Order Clarification Bulletin) MEDICATION REQUIRES CLARIFICATI... Q8H XX ; Start 02/20/19 at 21:00 Hydralazine HCl (Apresoline) 10 mg Q4H PRN IV sbp >160 Last administered on 02/23/19 02:08; Admin Dose 10 MG; Start 02/21/19 at 09:30 Cefepime HCl 50 ml @ 100 mls/hr Q12 IVPB Last administered on 02/23/19 10:08; Admin Dose 100 MLS/HR; Start 02/21/19 at 21:00 Clonidine (Catapres) 0.1 mg Q6H PRN PO sbp >160 Last administered on 5/24/19at 14:18; Admin Dose 0.1 MG; Start 02/22/19 at 10:00 Clonidine (Catapres) 0.2 mg QHS PO Last administered on 02/22/19at 21:30; Admin Dose 0.2 MG; Start 02/22/19 at 21:00 Clonidine (Catapres) 0.3 mg QAM PO Last administered on 02/23/19at 10:09; Admin Dose 0.3 MG; Start 02/23/19 at 09:00 Magnesium Sulfate 3 gm/Dextrose 106 ml @ 35.333 mls/ hr ONCE ONCE IVPB ; Start 02/23/19 at 15:00; Stop 02/23/19 at 17:59 KIKI ANGULO NP February 23, 2019 14:07
[2019-02-23] MEDS ORDERED: MAGNESIUM SULFATE 3 GM in DEXTROSE 5% 100 ML IVPB ONE (15:00)
--- NOTE | 2019-02-24 00:20 | CONS ---
DATE OF ADMISSION: 02/20/2019 DATE OF CONSULTATION: TYPE OF CONSULTATION: Nephrology. REASON FOR CONSULTATION: History of kidney transplant kidney, CKD. PHYSICIAN REQUESTING CONSULT: Michael Soriano MD HISTORY OF PRESENT ILLNESS: This is a 58-year-old female with a past medical history of lupus, histo ry of cadaveric renal transplant approximately 12 years ago, history of hypothyroidism, status post t hyroidectomy, history of hypertension who presents to [facility] complaining of dys uria and urinary frequency. The patient states she was diagnosed with UTI and pyelonephritis at outs [facility]. The patient subsequently transferred to [facility] for continued car e. The patient also noted to have gram-negative bacteremia at outside facility. The patient while o n med/surg is receiving IV antibiotics. In terms of patient's renal history, the patient had cadaveric transplant approximately 12 years ago. The patient has excellent allograft function with no episodes of rejection, acute kidney injury. T he patient is on triple therapy. The patient admits to only 1 prior episode of urinary tract infecti on. Otherwise, denies any hemoptysis, hematemesis, or hematochezia. PAST MEDICAL HISTORY: As stated above, history of lupus, history of hypothyroidism, history of hyper tension, history of end-stage renal disease. PAST SURGICAL HISTORY: Status post cadaveric renal transplant, status post thyroidectomy. FAMILY HISTORY: No family history of kidney disease. SOCIAL HISTORY: Does not drink, smoke or do drugs. MEDICATIONS: Reviewed. REVIEW OF SYSTEMS: A 14-point review of systems conducted. Pertinent positives stated in HPI, other ritchie negative. PHYSICAL EXAMINATION: VITAL SIGNS: Blood pressure is 113/67, respiration 19, pulse 81, temperature 98.0. HEENT: Head is normocephalic. NECK: Supple. HEART: Regular rate. LUNGS: Showed diminished breath sounds at the base. ABDOMEN: Soft, nontender to palpation. No rebound or guarding. No tenderness over cadaveric transp lant site. EXTREMITIES: Negative for clubbing, cyanosis. No edema. DERMATOLOGIC: No rashes. MUSCULOSKELETAL: No joint effusion. NEUROLOGIC: No focal deficits. LABORATORY DATA: From 02/23/2019 was reviewed. The patient's urinalysis was reviewed. Toxicology w as reviewed. ASSESSMENT AND PLAN: This is a 58-year-old female who presents with: 1. History of end-stage renal disease status post cadaveric renal transplant. The patient currently has excellent allograft function. Recommendation is to continue current immunosuppressive regimen. The patient's Prograf level was about 2.6, mildly below. Recommendation around 4 to 6. Plan is to repeat Prograf level. We will monitor closely. 2. Hypokalemia. Etiology likely secondary to hypomagnesemia. We will replete with potassium chlori de, magnesium sulfate. Monitor closely. 3. Sepsis secondary to urinary tract infection bacteremia. Continue current antibiotic regimen. 4. Hypothyroidism. Continue Synthroid. 5. History of lupus. Continue medical management. 6. Hypertension. Continue current blood pressure regimen. 7. Dyslipidemia. Continue statin therapy. Thank you, , for this very interesting consult. It will be a pleasure to follow patient with yo u throughout the hospital course. Dictated By: LIA RUBIO DO NR/NTS Conf#: [id number] DID#: [id number] CC: MICHAEL SORIANO MD; ALIZA CARRENO MD;*End*
[2019-02-24 02:00] VITALS: BP 134/68; PULSE 80; RESP 17
[2019-02-24] MEDS: PANTOPRAZOLE (EC) 40 MG TAB PO SCH (06:24)
[2019-02-24] MEDS: LEVOTHYROXINE 150 MCG TAB PO SCH (06:24)
[2019-02-24 08:38] VITALS: BP 161/84; PULSE 81; RESP 18
[2019-02-24] MEDS: TACROLIMUS 1 MG CAP PO SCH ×2 (09:06→21:06)
[2019-02-24] MEDS: MYCOPHENOLATE (SR) 180 MG TAB PO SCH ×2 (09:06→21:01)
[2019-02-24] MEDS: predniSONE 5 MG TAB PO SCH (09:06)
[2019-02-24] MEDS: ATORVASTATIN 10 MG TAB PO SCH (09:06)
[2019-02-24] MEDS: CEFEPIME 1GM/50 ML (PMX) 50 ML IVPB SCH ×2 (09:07→21:00)
--- NOTE | 2019-02-24 12:25 | PN ---
DATE: 02/24/2019 SUBJECTIVE: The patient is stable. No events noted. OBJECTIVE: VITAL SIGNS: Blood pressure is 161/84, respiration 18, pulse 81, temperature 98.1. HEENT: Head is normocephalic. NECK: Supple. HEART: Regular rate. LUNGS: Show diminished breath sounds at the base. ABDOMEN: Soft, nontender to palpation without rebound or guarding. EXTREMITIES: Negative for clubbing, cyanosis. No edema. DERMATOLOGIC: No rashes. MUSCULOSKELETAL: No joint effusion. NEUROLOGIC: No change in exam. MEDICATIONS: Have been reviewed. LABORATORY DATA: Have been reviewed. ASSESSMENT AND PLAN: 1. History of end-stage renal disease status post cadaveric renal transplant. The patient has excel lent allograft function. Continue current treatment plan. Continue current immunosuppressive regime n. 2. Hypokalemia and hypomagnesemia. Continue to monitor and replete. 3. Sepsis secondary to urinary tract infection and bacteremia. Continue antibiotic regimen. 4. Hypothyroidism. Continue Synthroid. 5. History of lupus. Continue medical management. 6. Hypertension. Continue current blood pressure regimen. 7. Dyslipidemia. Continue statin therapy. Dictated By: LIA RUBIO DO NR/NTS Conf#: [id number] DID#: [id number] CC: ALIZA CARRENO MD;*EndCC*
[2019-02-24 14:00] VITALS: BP 114/65; PULSE 80; RESP 19
--- NOTE | 2019-02-24 14:11 | PN ---
Date/Time of Note Date/Time of Note DATE: 02/24/19 TIME: 14:10 Assessment/Plan VTE Prophylaxis Risk score (from Ns)>0 risk: 3 SCD applied (from Ns): Yes Pharmacological prophylaxis: NA/contraindicated Pharm contraindication: low risk/ambulating Lines/Catheters IV [facility]from [facility] [place] Urinary Cath still in place: No Assessment/Plan Hospital Course SUBJECTIVE: Denies any complaints. OBJECTIVE: Physical Exam General: Obese, 58 year-old female lying in bed in no apparent distress. HEENT: Normocephalic, atraumatic. Eyes: Anicteric sclerae, conjunctivae clear. ENT: Nasal septum midline, oral mucosa moist. Neck supple, no JVD noticed. Respiratory: Bilaterally clear breath sounds. No use of accessory muscles of respiration. No adventitious breath sounds. Cardiovascular: S1, S2 heard. Regular rate and rhythm. Abdomen: Soft, nontender, and nondistended. Bowel sounds positive in all 4 quadrants. Genitourinary: Deferred. Extremities: No cyanosis, no clubbing, no edema. Peripheral pulses palpable. Neurologic: Cranial nerves II through XII grossly intact. The patient is awake, alert, and oriented. Skin: Normal skin turgor. No skin rashes. Labs & Vitals per chart ASSESSMENT & PLAN 58-year-old female with comorbidities including lupus, hypothyroidism, hypertension, status post cadaveric renal transplant who was transferred from the facility for further management of sepsis because of insurance reasons. 1. Sepsis with underlying urinary tract infection. -Continue antimicrobials. -Await final cultures from transferring facility. 2. Gram-negative bacteremia (from transferring facility). -Continue antimicrobials as per ID. Await final cultures. 3. Status post transplant. -Continue immunotherapy. -Prograf level low. -Nephrology following. 4. Hypothyroidism. -Continue Synthroid. 5. Lupus. -No evidence of any flare. 6. Hypertension. -Continue antihypertensives. 7. Dyslipidemia. -Continue statins. 8. Fluids, electrolytes, and nutrition. -Regular diet. 9. DVT prophylaxis. -Bilateral SCDs. 10. Plan. -Continue antimicrobials as per ID. -Await final cultures from the transferring facility. The patient was seen in collaboration with Dr. Garcia. Result Diagram: 02/24/19 0939 02/24/19 0939 Results 24hrs Laboratory Tests Test 02/24/19 09:39 White Blood Count 8.1 Red Blood Count 4.09 L Hemoglobin 12.4 Hematocrit 37.5 Mean Corpuscular Volume 91.7 Mean Corpuscular Hemoglobin 30.3 Mean Corpuscular Hemoglobin Concent 33.1 Red Cell Distribution Width 12.6 Platelet Count 184 Mean Platelet Volume 9.4 Immature Granulocytes % 0.600 H Neutrophils % 66.3 Lymphocytes % 24.6 Monocytes % 6.5 Eosinophils % 1.5 Basophils % 0.5 Nucleated Red Blood Cells % 0.0 Immature Granulocytes # 0.050 H Neutrophils # 5.4 Lymphocytes # 2.0 Monocytes # 0.5 Eosinophils # 0.1 Basophils # 0.0 Nucleated Red Blood Cells # 0.0 Sodium Level 141 Potassium Level 4.0 Chloride Level 113 H Carbon Dioxide Level 19 L Anion Gap 9 Blood Urea Nitrogen 14 Creatinine 0.65 Est Glomerular Filtrat Rate mL/min > 60 Glucose Level 158 Calcium Level 10.3 H Phosphorus Level 3.0 Magnesium Level 1.6 L Exam/Review of Systems Exam Vitals Vital Signs Date Temp Pulse Resp B/P (MAP) Pulse Ox O2 O2 Flow FiO2 Time Delivery Rate 02/24/19 98.1 81 18 161/84 99 08:38 (109) 02/24/19 Room Air 02:00 02/22/19 2.0 01:00 Intake and Output 02/23/19 02/23/19 02/24/19 1515:00 23:00 07:00 IntakeIntake Total 1050 ml 1296 ml 200 ml BalanceBalance 1050 ml 1296 ml 200 ml Results Results 24hrs Laboratory Tests Test 02/24/19 09:39 White Blood Count 8.1 Red Blood Count 4.09 L Hemoglobin 12.4 Hematocrit 37.5 Mean Corpuscular Volume 91.7 Mean Corpuscular Hemoglobin 30.3 Mean Corpuscular Hemoglobin Concent 33.1 Red Cell Distribution Width 12.6 Platelet Count 184 Mean Platelet Volume 9.4 Immature Granulocytes % 0.600 H Neutrophils % 66.3 Lymphocytes % 24.6 Monocytes % 6.5 Eosinophils % 1.5 Basophils % 0.5 Nucleated Red Blood Cells % 0.0 Immature Granulocytes # 0.050 H Neutrophils # 5.4 Lymphocytes # 2.0 Monocytes # 0.5 Eosinophils # 0.1 Basophils # 0.0 Nucleated Red Blood Cells # 0.0 Sodium Level 141 Potassium Level 4.0 Chloride Level 113 H Carbon Dioxide Level 19 L Anion Gap 9 Blood Urea Nitrogen 14 Creatinine 0.65 Est Glomerular Filtrat Rate mL/min > 60 Glucose Level 158 Calcium Level 10.3 H Phosphorus Level 3.0 Magnesium Level 1.6 L Medications Medication Current Medications IV Flush (NS 3 ml) 3 ml PER PROTOCOL IV ; Start 02/20/19 at 21:00 Ondansetron HCl (Zofran Inj) 4 mg Q6H PRN IV NAUSEA/VOMITING; Start 02/20/19 at 21:00 Acetaminophen (Tylenol Tab) 650 mg Q6H PRN PO .PAIN 1-3 OR TEMP Last administered on 02/23/19 10:17; Admin Dose 650 MG; Start 02/20/19 at 21:00 Acetaminophen/ Hydrocodone Bitart ([place] (5/325)) 1 tab Q6H PRN PO .MOD PAIN 4- 6; Start 02/20/19 at 21:00 Acetaminophen/ Hydrocodone Bitart ([place] (5/325)) 2 tab Q6H PRN PO .SEVERE PAIN 7-10; Start 02/20/19 at 21:00 Atorvastatin Calcium (Lipitor) 10 mg DAILY PO Last administered on 02/24/19 09:06; Admin Dose 10 MG; Start 02/21/19 at 09:00 Levothyroxine Sodium (Synthroid) 150 mcg BEFORE BREAKFAST PO Last administered on 02/24/19 06:24; Admin Dose 150 MCG; Start 02/21/19 at 07:00 Mycophenolate Sodium (Myfortic) 540 mg BID PO Last administered on 02/24/19 09:06; Admin Dose 540 MG; Start 02/20/19 at 22:00 Pantoprazole (Protonix Tab) 40 mg DAILY@0600 PO Last administered on 02/24/19 06:24; Admin Dose 40 MG; Start 02/21/19 at 06:00 Prednisone (Prednisone) 5 mg DAILY PO Last administered on 02/24/19 09:06; Admin Dose 5 MG; Start 02/21/19 at 09:00 Tramadol HCl (Ultram) 50 mg Q6 PRN PO PAIN Last administered on 02/23/19 05:38; Admin Dose 50 MG; Start 02/20/19 at 21:00 Tacrolimus (Prograf) 7 mg BID PO Last administered on 02/24/19 09:06; Admin Dose 7 MG; Start 02/21/19 at 11:00 Miscellaneous Information (*Order Clarification Bulletin) MEDICATION REQUIRES CLARIFICATI... Q8H XX ; Start 02/20/19 at 21:00 Hydralazine HCl (Apresoline) 10 mg Q4H PRN IV sbp >160 Last administered on 02/23/19 02:08; Admin Dose 10 MG; Start 02/21/19 at 09:30 Cefepime HCl 50 ml @ 100 mls/hr Q12 IVPB Last administered on 02/24/19 09:07; Admin Dose 100 MLS/HR; Start 02/21/19 at 21:00 Clonidine (Catapres) 0.1 mg Q6H PRN PO sbp >160 Last administered on 02/22/19 14:18; Admin Dose 0.1 MG; Start 02/22/19 at 10:00 Clonidine (Catapres) 0.2 mg QHS PO Last administered on 02/23/19 20:22; Admin Dose 0.2 MG; Start 02/22/19 at 21:00 Clonidine (Catapres) 0.3 mg QAM PO Last administered on 02/24/19 09:06; Admin Dose 0.3 MG; Start 02/23/19 at 09:00 SEVERIANO DAVE NP February 24, 2019 14:11
--- NOTE | 2019-02-24 18:20 | CONS ---
Assessment/Plan Assessment/Plan Hospital Course (Demo Recall) ID PROGRESS NOTE CURRENT ABX: DAY #5+ => Cefepime #4 24H INTERVAL SUMMARY * No new issues -- overall feeling better, no fevers, VSS, NAD * Patient w/GNR bacteremia and pyelonephritis (from transferring facility = [facility] [place]) -Await final cultures from the transferring facility. * IMAGING * 02/21/19 CT A-P: IMPRESSION: * 1. Heterogeneous patchy density noted in the right lobe of the liver. Findings are similar to prior examinations in 2016 and likely represents patchy fatty infiltration or other benign infiltration or cirrhotic change of the liver parenchyma.. Prior liver biopsy was performed in 2016. Recommend correlation with prior biopsy results. * 2. Severe end-stage atrophy of the bilateral [place] kidneys with tiny nonobstructing renal calculi. No evidence of obstructive uropathy. * 3. Left pelvic transplant kidney without evidence of obstructive uropathy or urolithiasis. There is no CT evidence of pyelonephritis. * 4. Mild colonic diverticulosis without evidence of diverticulitis. MICRO/OTHER * 02/21/19 BCX (-) x3 * 02/21/19 Urine Cx (-) PHYSICAL EXAMINATION: GENERAL: VSS, NAD, HEENT: AT, NC, NECK: WNL CHEST: Equal chest rise bilaterally without dyspnea on observation ABD: Soft, ND EXTREMITIES: Warm, dry SKIN: No rash, no diaphoresis ID ASSESSMENT 58 yo M admit with: 1. Sepsis w/ Gram-negative ashok bacteremia due to acute recurrent pyelonephritis * 02/20/19 Micro from [place] pending * NOTE: s/p admission JUL 2018 for Pyelonephritis 2. Ureter disorder per [place] H&P notes - NOS 3. History of kidney transplant, on immunosuppressive therapy 4. Lupus 5. Hx of Thyroid disorder (HCC?) (?)MRSA Nares ABX ALLERGIES: AMOXICILLIN INVASIVES: PIV CURRENT ABX: DAY # 5+ => Cefepime #4 ID RECOMMENDATIONS/PLAN: 1. Pending MICRO data from [place] -- Tomorrow is a Holiday -- may need to wait until to get [place] Micro results 2. Anticipate Cefepime IV x 14 days -- may DC home to complete 14 days course when cleared by primary . Consultation Date/Type/Reason Admit Date/Time February 20, 2019 at 18:44 Initial Consult Date Date/Time of Note DATE: 02/24/19 TIME: 18:18 Exam/Review of Systems Exam Vitals Vital Signs Date Temp Pulse Resp B/P (MAP) Pulse Ox O2 O2 Flow FiO2 Time Delivery Rate 02/24/19 98.2 80 19 114/65 99 14:00 (81) 02/24/19 Room Air 02:00 02/22/19 2.0 01:00 Intake and Output 02/23/19 02/23/19 02/24/19 1515:00 23:00 07:00 IntakeIntake Total 1050 ml 1296 ml 200 ml BalanceBalance 1050 ml 1296 ml 200 ml Results Result Diagram: 02/24/19 0939 02/24/19 0939 Results 24hrs Laboratory Tests Test 02/24/19 09:39 White Blood Count 8.1 Red Blood Count 4.09 L Hemoglobin 12.4 Hematocrit 37.5 Mean Corpuscular Volume 91.7 Mean Corpuscular Hemoglobin 30.3 Mean Corpuscular Hemoglobin Concent 33.1 Red Cell Distribution Width 12.6 Platelet Count 184 Mean Platelet Volume 9.4 Immature Granulocytes % 0.600 H Neutrophils % 66.3 Lymphocytes % 24.6 Monocytes % 6.5 Eosinophils % 1.5 Basophils % 0.5 Nucleated Red Blood Cells % 0.0 Immature Granulocytes # 0.050 H Neutrophils # 5.4 Lymphocytes # 2.0 Monocytes # 0.5 Eosinophils # 0.1 Basophils # 0.0 Nucleated Red Blood Cells # 0.0 Sodium Level 141 Potassium Level 4.0 Chloride Level 113 H Carbon Dioxide Level 19 L Anion Gap 9 Blood Urea Nitrogen 14 Creatinine 0.65 Est Glomerular Filtrat Rate mL/min > 60 Glucose Level 158 Calcium Level 10.3 H Phosphorus Level 3.0 Magnesium Level 1.6 L Medications Medication Current Medications IV Flush (NS 3 ml) 3 ml PER PROTOCOL IV ; Start 02/20/19 at 21:00 Ondansetron HCl (Zofran Inj) 4 mg Q6H PRN IV NAUSEA/VOMITING; Start 02/20/19 at 21:00 Acetaminophen (Tylenol Tab) 650 mg Q6H PRN PO .PAIN 1-3 OR TEMP Last administered on 02/23/19at 10:17; Admin Dose 650 MG; Start 02/20/19 at 21:00 Acetaminophen/ Hydrocodone Bitart ([place] (5/325)) 1 tab Q6H PRN PO .MOD PAIN 4- 6; Start 02/20/19 at 21:00 Acetaminophen/ Hydrocodone Bitart ([place] (5/325)) 2 tab Q6H PRN PO .SEVERE PAIN 7-10; Start 02/20/19 at 21:00 Atorvastatin Calcium (Lipitor) 10 mg DAILY PO Last administered on 02/24/19 09:06; Admin Dose 10 MG; Start 02/21/19 at 09:00 Levothyroxine Sodium (Synthroid) 150 mcg BEFORE BREAKFAST PO Last administered on 02/24/19 06:24; Admin Dose 150 MCG; Start 02/21/19 at 07:00 Mycophenolate Sodium (Myfortic) 540 mg BID PO Last administered on 02/24/19 09:06; Admin Dose 540 MG; Start 02/20/19 at 22:00 Pantoprazole (Protonix Tab) 40 mg DAILY@0600 PO Last administered on 02/24/19 06:24; Admin Dose 40 MG; Start 02/21/19 at 06:00 Prednisone (Prednisone) 5 mg DAILY PO Last administered on 02/24/19 09:06; Admin Dose 5 MG; Start 02/21/19 at 09:00 Tramadol HCl (Ultram) 50 mg Q6 PRN PO PAIN Last administered on 02/23/19 05:38; Admin Dose 50 MG; Start 02/20/19 at 21:00 Tacrolimus (Prograf) 7 mg BID PO Last administered on 02/24/19 09:06; Admin Dose 7 MG; Start 02/21/19 at 11:00 Miscellaneous Information (*Order Clarification Bulletin) MEDICATION REQUIRES CLARIFICATI... Q8H XX ; Start 02/20/19 at 21:00 Hydralazine HCl (Apresoline) 10 mg Q4H PRN IV sbp >160 Last administered on 02/23/19 02:08; Admin Dose 10 MG; Start 02/21/19 at 09:30 Cefepime HCl 50 ml @ 100 mls/hr Q12 IVPB Last administered on 02/24/19 09:07; Admin Dose 100 MLS/HR; Start 02/21/19 at 21:00 Clonidine (Catapres) 0.1 mg Q6H PRN PO sbp >160 Last administered on 02/22/19at 14:18; Admin Dose 0.1 MG; Start 02/22/19 at 10:00 Clonidine (Catapres) 0.2 mg QHS PO Last administered on 02/23/19at 20:22; Admin Dose 0.2 MG; Start 02/22/19 at 21:00 Clonidine (Catapres) 0.3 mg QAM PO Last administered on 02/24/19at 09:06; Admin Dose 0.3 MG; Start 02/23/19 at 09:00 KIKI ANGULO NP February 24, 2019 18:20
[2019-02-24 20:00] VITALS: BP 145/78; PULSE 82; RESP 18
[2019-02-25 02:00] VITALS: BP 132/71; PULSE 71; RESP 19
[2019-02-25] MEDS: PANTOPRAZOLE (EC) 40 MG TAB PO SCH (05:47)
[2019-02-25] MEDS: LEVOTHYROXINE 150 MCG TAB PO SCH (05:47)
[2019-02-25] MEDS: CEFEPIME 1GM/50 ML (PMX) 50 ML IVPB SCH ×2 (08:10→22:28)
[2019-02-25] MEDS: MYCOPHENOLATE (SR) 180 MG TAB PO SCH ×2 (08:11→22:26)
[2019-02-25] MEDS: TACROLIMUS 1 MG CAP PO SCH ×2 (08:11→22:27)
[2019-02-25] MEDS: predniSONE 5 MG TAB PO SCH (08:11)
[2019-02-25] MEDS: ATORVASTATIN 10 MG TAB PO SCH (08:11)
[2019-02-25 08:31] VITALS: BP 158/88; PULSE 78; RESP 18
--- NOTE | 2019-02-25 09:14 | PN ---
DATE: 02/25/2019 SUBJECTIVE: The patient is stable. No events overnight. OBJECTIVE: VITAL SIGNS: Blood pressure is 158/88, pulse 78, respirations 18, temperature 98.2. HEENT: Head is normocephalic. NECK: Supple. HEART: Regular rate. LUNGS: Show diminished breath sounds at the base. ABDOMEN: Soft, nontender to palpation without rebound or guarding. EXTREMITIES: Negative for clubbing, cyanosis, no edema. DERMATOLOGIC: No rashes. MUSCULOSKELETAL: No joint effusion. NEUROLOGIC: No change in exam. MEDICATIONS: Reviewed. LABORATORY DATA: Reviewed. ASSESSMENT AND PLAN: 1. History of end-stage renal disease status post cadaveric renal transplant. The patient has excel lent allograft function. Continue current treatment plan. Continue immunosuppressive therapy. 2. Hypokalemia and hypomagnesemia. Continue to monitor and replete. 3. Sepsis secondary to urinary tract infection and bacteremia. Continue current antibiotic course. 4. Hypothyroidism. Continue Synthroid. 5. History of lupus. 6. Hypertension. Continue current blood pressure regimen. 7. Dyslipidemia. Continue statin therapy. Dictated By: LIA RUBIO DO NR/NTS Conf#: [id number] DID#: [id number] CC: LIA RUBIO DO; ALIZA CARRENO MD;*EndCC*
[2019-02-25] MEDS ORDERED: MAGNESIUM SULFATE 2 GM/50 ML 50 ML IVPB ONE (10:00)
[2019-02-25 14:37] VITALS: BP 112/63; PULSE 78; RESP 19
--- NOTE | 2019-02-25 15:01 | PN ---
Date/Time of Note Date/Time of Note DATE: 02/25/19 TIME: 15:00 Assessment/Plan VTE Prophylaxis Risk score (from Ns)>0 risk: 3 SCD applied (from Ns): Yes Pharmacological prophylaxis: NA/contraindicated Pharm contraindication: low risk/ambulating Lines/Catheters IV Catheter Type (from [facility]): [place] Urinary Cath still in place: No Assessment/Plan Hospital Course SUBJECTIVE: Denies any complaints. OBJECTIVE: Physical Exam General: Obese, 58 year-old female lying in bed in no apparent distress. HEENT: Normocephalic, atraumatic. Eyes: Anicteric sclerae, conjunctivae clear. ENT: Nasal septum midline, oral mucosa moist. Neck supple, no JVD noticed. Respiratory: Bilaterally clear breath sounds. No use of accessory muscles of respiration. No adventitious breath sounds. Cardiovascular: S1, S2 heard. Regular rate and rhythm. Abdomen: Soft, nontender, and nondistended. Bowel sounds positive in all 4 quadrants. Genitourinary: Deferred. Extremities: No cyanosis, no clubbing, no edema. Peripheral pulses palpable. Neurologic: Cranial nerves II through XII grossly intact. The patient is awake, alert, and oriented. Skin: Normal skin turgor. No skin rashes. Labs & Vitals per chart ASSESSMENT & PLAN 58-year-old female with comorbidities including lupus, hypothyroidism, hypertension, status post cadaveric renal transplant who was transferred from the facility for further management of sepsis because of insurance reasons. 1. Sepsis with underlying urinary tract infection. -Continue antimicrobials. -Await final cultures from transferring facility. 2. Gram-negative bacteremia (from transferring facility). -Continue antimicrobials as per ID. Await final cultures. 3. Status post transplant. -Continue immunotherapy. -Prograf level low. -Nephrology following. 4. Hypothyroidism. -Continue Synthroid. 5. Lupus. -No evidence of any flare. 6. Hypertension. -Continue antihypertensives. 7. Dyslipidemia. -Continue statins. 8. Fluids, electrolytes, and nutrition. -Regular diet. 9. DVT prophylaxis. -Bilateral SCDs. 10. Plan. -Continue antimicrobials as per ID. -Await final cultures from the transferring facility (medical records not open because of the long weekend). The patient was seen in collaboration with Dr. Garcia. Result Diagram: 02/25/1936 02/25/19 0536 Results 24hrs Laboratory Tests Test 02/25/19 05:36 White Blood Count 9.8 # Red Blood Count 3.84 L Hemoglobin 11.7 L Hematocrit 35.2 L Mean Corpuscular Volume 91.7 Mean Corpuscular Hemoglobin 30.5 Mean Corpuscular Hemoglobin Concent 33.2 Red Cell Distribution Width 12.7 Platelet Count 196 Mean Platelet Volume 9.4 Immature Granulocytes % 0.600 H Neutrophils % 63.1 Lymphocytes % 26.8 Monocytes % 7.6 Eosinophils % 1.5 Basophils % 0.4 Nucleated Red Blood Cells % 0.0 Immature Granulocytes # 0.060 H Neutrophils # 6.2 Lymphocytes # 2.6 Monocytes # 0.7 Eosinophils # 0.2 Basophils # 0.0 Nucleated Red Blood Cells # 0.0 Sodium Level 143 Potassium Level 4.1 Chloride Level 113 H Carbon Dioxide Level 24 Anion Gap 6 Blood Urea Nitrogen 21 H Creatinine 0.71 Est Glomerular Filtrat Rate mL/min > 60 Glucose Level 114 # Calcium Level 10.5 H Phosphorus Level 3.4 Magnesium Level 1.3 L Exam/Review of Systems Exam Vitals Vital Signs Date Temp Pulse Resp B/P (MAP) Pulse Ox O2 O2 Flow FiO2 Time Delivery Rate 02/25/19 98.1 78 19 112/63 97 14:37 (79) 02/24/19 Room Air 02:00 02/22/19 2.0 01:00 Intake and Output 02/24/19 02/24/19 02/25/19 1515:00 23:00 07:00 IntakeIntake Total 530 ml 290 ml 480 ml BalanceBalance 530 ml 290 ml 480 ml Results Results 24hrs Laboratory Tests Test 02/25/19 05:36 White Blood Count 9.8 # Red Blood Count 3.84 L Hemoglobin 11.7 L Hematocrit 35.2 L Mean Corpuscular Volume 91.7 Mean Corpuscular Hemoglobin 30.5 Mean Corpuscular Hemoglobin Concent 33.2 Red Cell Distribution Width 12.7 Platelet Count 196 Mean Platelet Volume 9.4 Immature Granulocytes % 0.600 H Neutrophils % 63.1 Lymphocytes % 26.8 Monocytes % 7.6 Eosinophils % 1.5 Basophils % 0.4 Nucleated Red Blood Cells % 0.0 Immature Granulocytes # 0.060 H Neutrophils # 6.2 Lymphocytes # 2.6 Monocytes # 0.7 Eosinophils # 0.2 Basophils # 0.0 Nucleated Red Blood Cells # 0.0 Sodium Level 143 Potassium Level 4.1 Chloride Level 113 H Carbon Dioxide Level 24 Anion Gap 6 Blood Urea Nitrogen 21 H Creatinine 0.71 Est Glomerular Filtrat Rate mL/min > 60 Glucose Level 114 # Calcium Level 10.5 H Phosphorus Level 3.4 Magnesium Level 1.3 L Medications Medication Current Medications IV Flush (NS 3 ml) 3 ml PER PROTOCOL IV ; Start 02/20/19 at 21:00 Ondansetron HCl (Zofran Inj) 4 mg Q6H PRN IV NAUSEA/VOMITING; Start 02/20/19 at 21:00 Acetaminophen (Tylenol Tab) 650 mg Q6H PRN PO .PAIN 1-3 OR TEMP Last administered on 02/23/19 10:17; Admin Dose 650 MG; Start 02/20/19 at 21:00 Acetaminophen/ Hydrocodone Bitart ([place] (5/325)) 1 tab Q6H PRN PO .MOD PAIN 4- 6; Start 02/20/19 at 21:00 Acetaminophen/ Hydrocodone Bitart ([place] (5/325)) 2 tab Q6H PRN PO .SEVERE PAIN 7-10; Start 02/20/19 at 21:00 Atorvastatin Calcium (Lipitor) 10 mg DAILY PO Last administered on 02/25/19 08:11; Admin Dose 10 MG; Start 02/21/19 at 09:00 Levothyroxine Sodium (Synthroid) 150 mcg BEFORE BREAKFAST PO Last administered on 02/25/19 05:47; Admin Dose 150 MCG; Start 02/21/19 at 07:00 Mycophenolate Sodium (Myfortic) 540 mg BID PO Last administered on 02/25/19 08:11; Admin Dose 540 MG; Start 02/20/19 at 22:00 Pantoprazole (Protonix Tab) 40 mg DAILY@0600 PO Last administered on 02/25/19 05:47; Admin Dose 40 MG; Start 02/21/19 at 06:00 Prednisone (Prednisone) 5 mg DAILY PO Last administered on 02/25/19 08:11; Admin Dose 5 MG; Start 02/21/19 at 09:00 Tramadol HCl (Ultram) 50 mg Q6 PRN PO PAIN Last administered on 02/23/19 05:38; Admin Dose 50 MG; Start 02/20/19 at 21:00 Tacrolimus (Prograf) 7 mg BID PO Last administered on 02/25/19 08:11; Admin Dose 7 MG; Start 02/21/19 at 11:00 Hydralazine HCl (Apresoline) 10 mg Q4H PRN IV sbp >160 Last administered on 02/23/19 02:08; Admin Dose 10 MG; Start 02/21/19 at 09:30 Cefepime HCl 50 ml @ 100 mls/hr Q12 IVPB Last administered on 02/25/19 08:10; Admin Dose 100 MLS/HR; Start 02/21/19 at 21:00 Clonidine (Catapres) 0.1 mg Q6H PRN PO sbp >160 Last administered on 02/22/19 14:18; Admin Dose 0.1 MG; Start 02/22/19 at 10:00 Clonidine (Catapres) 0.2 mg QHS PO Last administered on 02/24/19 21:07; Admin Dose 0.2 MG; Start 02/22/19 at 21:00 Clonidine (Catapres) 0.3 mg QAM PO Last administered on 02/25/19 09:04; Admin Dose 0.3 MG; Start 02/23/19 at 09:00 SEVERIANO DAVE NP February 25, 2019 15:01
--- NOTE | 2019-02-25 16:41 | CONS ---
Assessment/Plan Assessment/Plan Hospital Course (Demo Recall) ID PROGRESS NOTE CURRENT ABX: DAY #6+ => Cefepime #5 24H INTERVAL SUMMARY * CLINICALLY STATUS QUO -- No new issues/nor complaints -- overall feeling better, no fevers, VSS, NAD * Patient w/GNR bacteremia and pyelonephritis (from transferring facility = [facility]) -Await final cultures from the transferring facility. * IMAGING * 02/21/19 CT A-P: IMPRESSION: * 1. Heterogeneous patchy density noted in the right lobe of the liver. Findings are similar to prior examinations in 2016 and likely represents patchy fatty infiltration or other benign infiltration or cirrhotic change of the liver parenchyma.. Prior liver biopsy was performed in 2016. Recommend correlation with prior biopsy results. * 2. Severe end-stage atrophy of the bilateral [place] kidneys with tiny nonobstructing renal calculi. No evidence of obstructive uropathy. * 3. Left pelvic transplant kidney without evidence of obstructive uropathy or urolithiasis. There is no CT evidence of pyelonephritis. * 4. Mild colonic diverticulosis without evidence of diverticulitis. MICRO/OTHER * 02/21/19 BCX (-) x3 * 02/21/19 Urine Cx (-) PHYSICAL EXAMINATION: GENERAL: VSS, NAD, HEENT: AT, NC, NECK: WNL CHEST: Equal chest rise bilaterally without dyspnea on observation ABD: Soft, ND EXTREMITIES: Warm, dry SKIN: No rash, no diaphoresis ID ASSESSMENT 58 yo M admit with: 1. Sepsis w/ Gram-negative ashok bacteremia due to acute recurrent pyelonephritis * 02/20/19 Micro from [place] pending * NOTE: s/p admission JUL 2018 for Pyelonephritis 2. Ureter disorder per [place] H&P notes - NOS 3. History of kidney transplant, on immunosuppressive therapy 4. Lupus 5. Hx of Thyroid disorder (HCC?) (?)MRSA Nares ABX ALLERGIES: AMOXICILLIN INVASIVES: PIV CURRENT ABX: DAY # 6+ => Cefepime #5 ID RECOMMENDATIONS/PLAN: 1. Pending MICRO data from [place] -- Tomorrow is a Holiday -- may need to wait until to get [place] Micro results * If micro results sensitive to QUINOLONE possible "PO Switch" to complete days #8-14 to complete total ABX course 2. Anticipate Cefepime IV x 14 days -- may DC home to complete 14 days course when cleared by primary . Consultation Date/Type/Reason Admit Date/Time February 20, 2019 at 18:44 Initial Consult Date Date/Time of Note DATE: 02/25/19 TIME: 16:39 Exam/Review of Systems Exam Vitals Vital Signs Date Temp Pulse Resp B/P (MAP) Pulse Ox O2 O2 Flow FiO2 Time Delivery Rate 02/25/19 98.1 78 19 112/63 97 14:37 (79) 02/24/19 Room Air 02:00 02/22/19 2.0 01:00 Intake and Output 02/24/19 02/24/19 02/25/19 1515:00 23:00 07:00 IntakeIntake Total 530 ml 290 ml 480 ml BalanceBalance 530 ml 290 ml 480 ml Results Result Diagram: 02/25/19 0536 02/25/19 0536 Results 24hrs Laboratory Tests Test 02/25/19 05:36 White Blood Count 9.8 # Red Blood Count 3.84 L Hemoglobin 11.7 L Hematocrit 35.2 L Mean Corpuscular Volume 91.7 Mean Corpuscular Hemoglobin 30.5 Mean Corpuscular Hemoglobin Concent 33.2 Red Cell Distribution Width 12.7 Platelet Count 196 Mean Platelet Volume 9.4 Immature Granulocytes % 0.600 H Neutrophils % 63.1 Lymphocytes % 26.8 Monocytes % 7.6 Eosinophils % 1.5 Basophils % 0.4 Nucleated Red Blood Cells % 0.0 Immature Granulocytes # 0.060 H Neutrophils # 6.2 Lymphocytes # 2.6 Monocytes # 0.7 Eosinophils # 0.2 Basophils # 0.0 Nucleated Red Blood Cells # 0.0 Sodium Level 143 Potassium Level 4.1 Chloride Level 113 H Carbon Dioxide Level 24 Anion Gap 6 Blood Urea Nitrogen 21 H Creatinine 0.71 Est Glomerular Filtrat Rate mL/min > 60 Glucose Level 114 # Calcium Level 10.5 H Phosphorus Level 3.4 Magnesium Level 1.3 L Medications Medication Current Medications IV Flush (NS 3 ml) 3 ml PER PROTOCOL IV ; Start 02/20/19 at 21:00 Ondansetron HCl (Zofran Inj) 4 mg Q6H PRN IV NAUSEA/VOMITING; Start 02/20/19 at 21:00 Acetaminophen (Tylenol Tab) 650 mg Q6H PRN PO .PAIN 1-3 OR TEMP Last administered on 02/23/19 10:17; Admin Dose 650 MG; Start 02/20/19 at 21:00 Acetaminophen/ Hydrocodone Bitart ([place] (5/325)) 1 tab Q6H PRN PO .MOD PAIN 4- 6; Start 02/20/19 at 21:00 Acetaminophen/ Hydrocodone Bitart ([place] (5/325)) 2 tab Q6H PRN PO .SEVERE PAIN 7-10; Start 02/20/19 at 21:00 Atorvastatin Calcium (Lipitor) 10 mg DAILY PO Last administered on 02/25/19 08:11; Admin Dose 10 MG; Start 02/21/19 at 09:00 Levothyroxine Sodium (Synthroid) 150 mcg BEFORE BREAKFAST PO Last administered on 02/25/19 05:47; Admin Dose 150 MCG; Start 02/21/19 at 07:00 Mycophenolate Sodium (Myfortic) 540 mg BID PO Last administered on 02/25/19 08:11; Admin Dose 540 MG; Start 02/20/19 at 22:00 Pantoprazole (Protonix Tab) 40 mg DAILY@0600 PO Last administered on 02/25/19 05:47; Admin Dose 40 MG; Start 02/21/19 at 06:00 Prednisone (Prednisone) 5 mg DAILY PO Last administered on 02/25/19 08:11; Admin Dose 5 MG; Start 02/21/19 at 09:00 Tramadol HCl (Ultram) 50 mg Q6 PRN PO PAIN Last administered on 02/23/19 05:38; Admin Dose 50 MG; Start 02/20/19 at 21:00 Tacrolimus (Prograf) 7 mg BID PO Last administered on 02/25/19 08:11; Admin Dose 7 MG; Start 02/21/19 at 11:00 Hydralazine HCl (Apresoline) 10 mg Q4H PRN IV sbp >160 Last administered on 02/23/19 02:08; Admin Dose 10 MG; Start 02/21/19 at 09:30 Cefepime HCl 50 ml @ 100 mls/hr Q12 IVPB Last administered on 02/25/19 08:10; Admin Dose 100 MLS/HR; Start 02/21/19 at 21:00 Clonidine (Catapres) 0.1 mg Q6H PRN PO sbp >160 Last administered on 02/22/19at 14:18; Admin Dose 0.1 MG; Start 02/22/19 at 10:00 Clonidine (Catapres) 0.2 mg QHS PO Last administered on 02/24/19at 21:07; Admin Dose 0.2 MG; Start 02/22/19 at 21:00 Clonidine (Catapres) 0.3 mg QAM PO Last administered on 02/25/19at 09:04; Admin Dose 0.3 MG; Start 02/23/19 at 09:00 KIKI ANGULO NP February 25, 2019 16:41
[2019-02-25 20:00] VITALS: BP 164/88; PULSE 90; RESP 18
[2019-02-26 02:00] VITALS: BP 132/69; PULSE 70; RESP 17
[2019-02-26] MEDS: PANTOPRAZOLE (EC) 40 MG TAB PO SCH (05:09)
[2019-02-26] MEDS: LEVOTHYROXINE 150 MCG TAB PO SCH (05:09)
[2019-02-26 08:05] VITALS: BP 153/81; PULSE 84; RESP 18
--- NOTE | 2019-02-26 09:09 | PN ---
DATE: 02/26/2019 SUBJECTIVE: The patient is stable. No events overnight. OBJECTIVE: VITAL SIGNS: Blood pressure is 153/81, pulse 84, respirations 18, temperature 97.6. HEENT: Head is normocephalic. NECK: Supple. HEART: Regular rate. LUNGS: Show diminished breath sounds at the base. ABDOMEN: Soft, nontender to palpation without rebound or guarding. EXTREMITIES: Negative for clubbing, cyanosis, no edema. DERMATOLOGIC: No rashes. MUSCULOSKELETAL: No joint effusion. NEUROLOGIC: No change in exam. MEDICATIONS: Reviewed. LABORATORY DATA: Reviewed. ASSESSMENT AND PLAN: 1. End-stage renal disease. The patient is status post cadaveric renal transplant. The patient has an allograft function. Continue current immunosuppressive regimen. 2. Hypomagnesemia. We will replete with magnesium sulfate. 3. Sepsis secondary to urinary tract infection and bacteremia. Continue current antibiotic regimen. 4. Hypothyroidism. Continue Synthroid. 5. History of lupus. 6. Hypertension. Continue current blood pressure regimen, adjust as needed. 7. Dyslipidemia. Continue statin therapy. Dictated By: LIA RUBIO DO NR/NTS Conf#: [id number] DID#: [id number] CC: LIA RUBIO DO; ALIZA CARRENO MD;*EndCC*
[2019-02-26] MEDS ORDERED: MAGNESIUM SULFATE 2 GM/50 ML 50 ML IVPB ONE (09:30)
[2019-02-26] MEDS: CEFEPIME 1GM/50 ML (PMX) 50 ML IVPB SCH (10:29)
[2019-02-26] MEDS: predniSONE 5 MG TAB PO SCH (10:30)
[2019-02-26] MEDS: MYCOPHENOLATE (SR) 180 MG TAB PO SCH (10:30)
[2019-02-26] MEDS: ATORVASTATIN 10 MG TAB PO SCH (10:30)
[2019-02-26] MEDS: TACROLIMUS 1 MG CAP PO SCH (11:58)
[2019-02-26] MEDS ORDERED: LEVO500T10 PO (12:57)
--- NOTE | 2019-02-26 13:01 | PDOCDIS ---
Discharge Instructions CONDITION [id number] Patient Condition: [id number] Stable HOME CARE INSTRUCTIONS: [id number] Diet Instructions: [id number] Regular FOLLOW UP/APPOINTMENTS Follow-up Plan Follow-up with your primary care physician in 1 week. OTHER ORDERS: Other Orders: 1. Resume home medications. 2. Complete the course of antibiotics. 3. Follow a regular diet. 4. Resume activities as tolerated. 5. Follow-up with your primary care physician in 1 week. 6. Please go to the nearest emergency room if you have any significant urinary symptoms, persistent fevers, or any other unusual signs/symptoms. SEVERIANO DAVE NP February 26, 2019 13:01
--- NOTE | 2019-02-26 13:52 | DS ---
Date/Time of Note Date/Time of Note DATE: 02/26/19 TIME: 13:51 Discharge Summary Admission/Discharge Info Admit Date/Time February 20, 2019 at 18:44 Discharge Date/Time Discharge Diagnosis 1. Status post sepsis with underlying urinary tract infection. 2. Urinary tract infection. 3. Status post renal transplant. 4. Hypothyroidism. 5. Lupus. 6. Hypertension. 7. Dyslipidemia. 8. Obesity. BMI 32 kg/m. Patient Condition: Stable Consults 1. Arthur Rodriguez MD, Infectious Diseases. 2. Fidencio Bedolla DO, Nephrology. Procedures CT Abdomen & Pelvis IMPRESSION: 1. Heterogeneous patchy density noted in the right lobe of the liver. Findings are similar to prior examinations in 2016 and likely represents patchy fatty infiltration or other benign infiltration or cirrhotic change of the liver parenchyma.. Prior liver biopsy was performed in 2016. Recommend correlation with prior biopsy results. 2. 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 No evidence of obstructive uropathy. 3. Left pelvic transplant kidney without evidence of obstructive uropathy or urolithiasis. There is no CT evidence of pyelonephritis. 4. Mild colonic diverticulosis without evidence of diverticulitis. Hx of Present Illness This is a 58-year-old female with comorbidities including lupus, hypothyroidism, hypertension, status post cadaveric renal transplant who was transferred from the facility for further management of sepsis because of insurance reasons. Hospital Course The patient was admitted to inpatient setting. The patient was started on empiric antimicrobials. As per the admitting physician, the patient also had Gram-negative bacteremia from the transferring facility. However, review of records I did not find it. Nevertheless, the patient was maintained on antimicrobials as per infectious diseases. The patient's ruiz cultures from [facility] remained negative. Final cultures were obtained from the transferring facility only on 02/26/2019 because of the long weekend from . Patient's urine culture was positive for E. coli with colony count more than 100,000 CFU per mL sensitive to fluoroquinolones. Therefore, the patient will be discharged home on Levaquin to complete at the course of 2 weeks of therapy. The patient was adequately hydrated using IV fluids during the hospital course. The patient has a history of a kidney transplant. The patient was being followed by nephrology. The patient is immunocompromised because of her taking immunosuppressants. Therefore, the patient was adequately treated for underlying complicated urinary tract infection. The patient did not have any CT evidence of any pyelonephritis. She has a history of acquired hypothyroidism. She was maintained on Synthroid. She has underlying hypertension. She was maintained on antihypertensives. She has underlying dyslipidemia. She was maintained on statins. The patient has a history of underlying lupus. The patient did not have any evidence of any lupus flare. The patient had a stable, but a relatively long hospital course because of the delay in getting the final culture results from the transferring facility because of the long weekend. The patient was cleared by consultants to be discharged home. The patient denied any complaints at the time of discharge. Discharge Instructions 1. Resume home medications. 2. Complete the course of antibiotics. 3. Follow a regular diet. 4. Resume activities as tolerated. 5. Follow-up with your primary care physician in 1 week. 6. Please go to the nearest emergency room if you have any significant urinary symptoms, persistent fevers, or any other unusual signs/symptoms. The patient verbalized understanding of her discharge instructions. At this time I would like to thank all the consultants for seeing the patient and providing clinical recommendations. The patient was seen in collaboration with Dr. Sharma. Home Meds Active Scripts Levofloxacin* (Levofloxacin*) 500 Mg Tablet, 500 MG PO DAILY, #10 TAB Prov:SEVERIANO DAVE NP 02/26/19 Prednisone* (Prednisone*) 5 Mg Tab, 5 MG PO DAILY for 30 Days, TAB Prov:JENNIFER SULTANA 07/15/16 Reported Medications Atorvastatin Calcium (Atorvastatin Calcium) 10 Mg Tablet, 10 MG PO DAILY, #30 TAB 02/20/19 Clonidine Hcl* (Clonidine Hcl*) 0.2 Mg Tablet, 0.2 MG PO QHS, TAB 02/20/19 Clonidine Hcl* (Clonidine Hcl*) 0.3 Mg Tablet, 0.3 MG PO DAILY, TAB 02/20/19 Hydrocodone Bit-Acetaminophen (Hydrocodone Bit-APAP) 5-325MG Tablet, 1 TAB PO Q6H PRN for PAIN, TAB 07/12/16 Levothyroxine Sodium* (Synthroid*) 150 Mcg Tablet, 150 MCG PO BEFORE BREAKFAST, #30 TAB 07/12/16 Pantoprazole* (Protonix*) 40 Mg Tablet., 40 MG PO DAILY, TAB 07/12/16 Tramadol HCl (Tramadol HCl) 50 Mg Tablet, 50 MG PO Q6 PRN for PAIN, #60 TAB 07/12/16 Mycophenolate Sodium* (Mycophenolic Acid*) 180 Mg Tablet.dr, 540 MG PO BID, TAB 07/12/16 Tacrolimus* (Tacrolimus*) 5 Mg Capsule, 7 MG PO BID, CAP 07/12/16 Follow-up Plan Follow-up with your primary care physician in 1 week. Primary Care Provider Sandeep Gonzalez Time spent on discharge: > 30 minutes Pending Labs Laboratory Tests Test 02/26/19 06:20 White Blood Count 11.0 10^3/ul (4.8-10.8) Red Blood Count 4.19 10^6/ul (4.20-5.40) Hemoglobin 12.7 g/dl (12.0-16.0) Hematocrit 38.0 % (37.0-47.0) Mean Corpuscular Volume 90.7 fl (82.0-101.0) Mean Corpuscular Hemoglobin 30.3 pg (29.0-33.0) Mean Corpuscular Hemoglobin Concent 33.4 g/dl (32.0-37.0) Red Cell Distribution Width 12.6 % (11.5-14.5) Platelet Count 224 10^3/UL (140-415) Mean Platelet Volume 9.3 fl (7.4-10.4) Immature Granulocytes % 1.000 % (0.001-0.429) Neutrophils % 63.3 % (39.0-77.0) Lymphocytes % 26.4 % (15.0-51.0) Monocytes % 7.3 % (0.0-11.0) Eosinophils % 1.6 % (0.0-7.0) Basophils % 0.4 % (0.0-2.0) Nucleated Red Blood Cells % 0.0 /100WBC (0.0-0.0) Immature Granulocytes # 0.110 10^3/ul (0.0-0.031) Neutrophils # 7.0 10^3/ul (1.6-7.5) Lymphocytes # 2.9 10^3/ul (0.8-2.9) Monocytes # 0.8 10^3/ul (0.3-0.9) Eosinophils # 0.2 10^3/ul (0.0-0.5) Basophils # 0.0 10^3/ul (0.0-0.1) Nucleated Red Blood Cells # 0.0 10^3/ul (0.0-0.0) Sodium Level 141 mmol/L (135-144) Potassium Level 4.9 mmol/L (3.5-5.1) Chloride Level 109 mmol/L (97-110) Carbon Dioxide Level 26 mmol/L (21-31) Anion Gap 6 (5-13) Blood Urea Nitrogen 22 mg/dl (7-20) Creatinine 0.79 mg/dl (0.44-1.00) Est Glomerular Filtrat Rate mL/min > 60 mL/min (>60) Glucose Level 108 mg/dl (70-220) Calcium Level 11.0 mg/dl (8.4-10.2) Phosphorus Level 3.8 mg/dl (2.5-4.9) Magnesium Level 1.5 mg/dl (1.7-2.5) SEVERIANO DAVE NP February 26, 2019 13:52
[2019-02-26 14:00] VITALS: BP 119/70; PULSE 76; RESP 18
--- NOTE | 2019-02-26 14:25 | CONS ---
Assessment/Plan Assessment/Plan Hospital Course (Demo Recall) Alert feels good Microbiology: Blood and urine cultures are negative Allergies: Amoxicillin Antimicrobials: Cefepime PHYSICAL EXAMINATION: GENERAL: This is an obese, well-developed, very pleasant, middle-aged woman who is alert, in no distress. HEENT: Head is atraumatic, normocephalic. Sclerae are anicteric. Buccal mucosa is pale. Oropharynx is clear. No oral lesions. NECK: Supple. No palpable cervical nodes. CHEST: Rise symmetrical. Breath sounds are clear bilaterally. HEART: S1, S2. ABDOMEN: Soft. Bowel sounds are present. The patient has some mild tenderness on palpation of left lower quadrant. No evidence of distended bladder. EXTREMITIES: Without cyanosis. Assessment: 1. Acute pyelonephritis, urine culture from [facility] grew E. coli 2. ?Gram-negative ashok bacteremia 3. History of kidney transplant, on immunosuppressive therapy 4. Lupus Plan: Patient is doing much better, anticipate discharge on oral Levaquin to complete 2 weeks antibiotics Consultation Date/Type/Reason Admit Date/Time February 20, 2019 at 18:44 Initial Consult Date Type of Consult id Date/Time of Note DATE: 02/26/19 TIME: 14:24 Exam/Review of Systems Exam Vitals Vital Signs Date Temp Pulse Resp B/P (MAP) Pulse Ox O2 O2 Flow FiO2 Time Delivery Rate 02/26/19 97.6 84 18 153/81 96 Room Air 08:05 (105) Intake and Output 02/25/19 02/25/19 02/26/19 1515:00 23:00 07:00 IntakeIntake Total 820 ml 170 ml BalanceBalance 820 ml 170 ml Results Result Diagram: 02/26/19 0620 02/26/19 0620 Results 24hrs Laboratory Tests Test 02/26/19 06:20 White Blood Count 11.0 H Red Blood Count 4.19 L Hemoglobin 12.7 Hematocrit 38.0 Mean Corpuscular Volume 90.7 Mean Corpuscular Hemoglobin 30.3 Mean Corpuscular Hemoglobin Concent 33.4 Red Cell Distribution Width 12.6 Platelet Count 224 Mean Platelet Volume 9.3 Immature Granulocytes % 1.000 H Neutrophils % 63.3 Lymphocytes % 26.4 Monocytes % 7.3 Eosinophils % 1.6 Basophils % 0.4 Nucleated Red Blood Cells % 0.0 Immature Granulocytes # 0.110 H Neutrophils # 7.0 Lymphocytes # 2.9 Monocytes # 0.8 Eosinophils # 0.2 Basophils # 0.0 Nucleated Red Blood Cells # 0.0 Sodium Level 141 Potassium Level 4.9 Chloride Level 109 Carbon Dioxide Level 26 Anion Gap 6 Blood Urea Nitrogen 22 H Creatinine 0.79 Est Glomerular Filtrat Rate mL/min > 60 Glucose Level 108 Calcium Level 11.0 H Phosphorus Level 3.8 Magnesium Level 1.5 L Medications Medication Current Medications IV Flush (NS 3 ml) 3 ml PER PROTOCOL IV ; Start 02/20/19 at 21:00 Ondansetron HCl (Zofran Inj) 4 mg Q6H PRN IV NAUSEA/VOMITING; Start 02/20/19 at 21:00 Acetaminophen (Tylenol Tab) 650 mg Q6H PRN PO .PAIN 1-3 OR TEMP Last administered on 02/23/19 10:17; Admin Dose 650 MG; Start 02/20/19 at 21:00 Acetaminophen/ Hydrocodone Bitart ([place] (5/325)) 1 tab Q6H PRN PO .MOD PAIN 4- 6; Start 02/20/19 at 21:00 Acetaminophen/ Hydrocodone Bitart ([place] (5/325)) 2 tab Q6H PRN PO .SEVERE PAIN 7-10; Start 02/20/19 at 21:00 Atorvastatin Calcium (Lipitor) 10 mg DAILY PO Last administered on 02/26/19 10:30; Admin Dose 10 MG; Start 02/21/19 at 09:00 Levothyroxine Sodium (Synthroid) 150 mcg BEFORE BREAKFAST PO Last administered on 02/26/19 05:09; Admin Dose 150 MCG; Start 02/21/19 at 07:00 Mycophenolate Sodium (Myfortic) 540 mg BID PO Last administered on 02/26/19 10:30; Admin Dose 540 MG; Start 02/20/19 at 22:00 Pantoprazole (Protonix Tab) 40 mg DAILY@0600 PO Last administered on 02/26/19 05:09; Admin Dose 40 MG; Start 02/21/19 at 06:00 Prednisone (Prednisone) 5 mg DAILY PO Last administered on 02/26/19 10:30; Admin Dose 5 MG; Start 02/21/19 at 09:00 Tramadol HCl (Ultram) 50 mg Q6 PRN PO PAIN Last administered on 02/23/19 05:38; Admin Dose 50 MG; Start 02/20/19 at 21:00 Tacrolimus (Prograf) 7 mg BID PO Last administered on 02/26/19 11:58; Admin Dose 7 MG; Start 02/21/19 at 11:00 Hydralazine HCl (Apresoline) 10 mg Q4H PRN IV sbp >160 Last administered on 02/23/19 02:08; Admin Dose 10 MG; Start 02/21/19 at 09:30 Cefepime HCl 50 ml @ 100 mls/hr Q12 IVPB Last administered on 02/26/19 10:29; Admin Dose 100 MLS/HR; Start 02/21/19 at 21:00 Clonidine (Catapres) 0.1 mg Q6H PRN PO sbp >160 Last administered on 02/22/19 14:18; Admin Dose 0.1 MG; Start 02/22/19 at 10:00 Clonidine (Catapres) 0.2 mg QHS PO Last administered on 02/25/19 21:22; Admin Dose 0.2 MG; Start 02/22/19 at 21:00 Clonidine (Catapres) 0.3 mg QAM PO Last administered on 02/26/19 10:30; Admin Dose 0.3 MG; Start 02/23/19 at 09:00 MANSOOR MOSQUERA NP February 26, 2019 14:25
== END 2019-02-26 16:33 | disposition home or self-care (01) | DRG 872 ==
LOC: PP2 18:44
PROVIDERS: ADMIT Internal Medicine; ATTEND Internal Medicine
DX: A41.50 Gram-negative sepsis, unspecified (principal); Z94.0 Kidney transplant status; N39.0 Urinary tract infection, site not specified; M32.9 Systemic lupus erythematosus, unspecified; E03.9 Hypothyroidism, unspecified; N20.0 Calculus of kidney; E78.5 Hyperlipidemia, unspecified; E87.6 Hypokalemia; E83.42 Hypomagnesemia; I10 Essential (primary) hypertension
CPT/HCPCS: 74176; 80048; 80053; 80197; 81001; 83735; 84100; 85025; 87086; J0360; J0692; J0696; J3475; J7030; J7507; J7512